=== PATIENT | female | born 1990 | race Caucasian/White ===

== ENCOUNTER 2017-09-24 18:20 | Emergency (ER) | payer MEDICAID ==
[~2017-09-24] VITALS: Ht 160 cm; Wt 136.3 kg
[~2017-09-24 18:20] MED LIST: ACHD5005 PO; AMOX500C2 PO; CEPH-507 PO; CIPR500T78 PO; DCS100C PO; DOCU100C37 PO; FERR-57 PO; FERR-65 PO; HYDR-1231 PO; HYDR-3729 PO; IBP600T1 PO; IBUP-1773 PO; IBUP800T26 PO; METR500T PO; ONDA-42 PO; ONDA-42 SL; ONDA4TAB10 PO; OXYC-12 PO; POLY119P5 PO; PREN1TAB71 PO; PRENATAL VITAMINS; PYRI50TA10 PO; RT-ALBUINH IH; TRM50T PO; UNISOM25 M1 PO
--- OUTSIDE RECORDS SUMMARY | 2017-09-24 20:14 | XMS REPORT | Continuity of Care Document ---
Author Author [facility] Address Unknown Phone Unavailable Allergies Active Description Code Type Severity Reaction Onset Reported/Identified Relationship to Patient Clinical Status Yes codeine [id number] Drug Allergy Mild N/A 08/24/2008 Yes codeine Drug Allergy N/A N/A 07/07/2009 Yes Seroquel Drug Allergy N/A N/A 02/16/2014 Yes quetiapine [id number] Drug Allergy Unknown N/A 07/03/2015 Yes Sulfa (Sulfonamide Antibiotics) [id number] Drug Allergy Unknown N/A 2015 Medications There is no data. Problems Date Dx Coded Attending Type Code Diagnosis Diagnosed By 07/07/2009 NEWTON LÓPEZ APRN 110.5 DERMATOPHYTOSIS, OF THE BODY 07/07/2009 KARINE CALDWELL APRN 110.5 DERMATOPHYTOSIS, OF THE BODY 07/07/2009 ANGELINA HAGAN MD 110.5 DERMATOPHYTOSIS, OF THE BODY 07/07/2009 BRANDEE NICHOLE DO 110.5 DERMATOPHYTOSIS, OF THE BODY 07/07/2009 KARINE CALDWELL APRN A 110.5 DERMATOPHYTOSIS, OF THE BODY 07/07/2009 ROSA LEMUS APRN 110.5 DERMATOPHYTOSIS, OF THE BODY 07/07/2009 JENN ROSARIO MD 110.5 DERMATOPHYTOSIS, OF THE BODY 07/07/2009 JENN ROSARIO MD 110.5 DERMATOPHYTOSIS, OF THE BODY 07/07/2009 JENN ROSARIO MD 110.5 DERMATOPHYTOSIS, OF THE BODY 07/07/2009 JENN ROSARIO MD 110.5 DERMATOPHYTOSIS, OF THE BODY 07/07/2009 JENN ROSARIO MD 110.5 DERMATOPHYTOSIS, OF THE BODY 07/07/2009 JENN ROSARIO MD 110.5 DERMATOPHYTOSIS, OF THE BODY 11/13/2009 NEWTON LÓPEZ APRN R 692.9 CONTACT DERMATITIS AND OTHER ECZEMA, UNSPECIFIED CAUSE 11/13/2009 NEWTON LÓPEZ APRN R 724.5 BACKACHE UNSPECIFIED 11/13/2009 KARINE CALDWELL APRN A 692.9 CONTACT DERMATITIS AND OTHER ECZEMA, UNSPECIFIED CAUSE 11/13/2009 KARINE CALDWELL APRN A 724.5 BACKACHE UNSPECIFIED 11/13/2009 ANGELINA HAGAN MD 692.9 CONTACT DERMATITIS AND OTHER ECZEMA, UNSPECIFIED CAUSE 11/13/2009 ANGELINA HAGAN MD N 724.5 BACKACHE UNSPECIFIED 11/13/2009 NICHOLE DODAYSIA K 692.9 CONTACT DERMATITIS AND OTHER ECZEMA, UNSPECIFIED CAUSE 11/13/2009 NICHOLE DO, BRANDEE K 724.5 BACKACHE UNSPECIFIED 11/13/2009 KARINE CALDWELL APRN A 692.9 CONTACT DERMATITIS AND OTHER ECZEMA, UNSPECIFIED CAUSE 11/13/2009 KARINE CALDWELL APRN A 724.5 BACKACHE UNSPECIFIED 11/13/2009 ALLAN HESTER ROSA R 692.9 CONTACT DERMATITIS AND OTHER ECZEMA, UNSPECIFIED CAUSE 11/13/2009 ALLAN HESTER ROSA R 724.5 BACKACHE UNSPECIFIED 11/13/2009 JENN ROSARIO MD 692.9 CONTACT DERMATITIS AND OTHER ECZEMA, UNSPECIFIED CAUSE 11/13/2009 JENN ROSARIO MD 724.5 BACKACHE UNSPECIFIED 11/13/2009 JENN ROSARIO MD 692.9 CONTACT DERMATITIS AND OTHER ECZEMA, UNSPECIFIED CAUSE 11/13/2009 JENN ROSARIO MD 724.5 BACKACHE UNSPECIFIED 11/13/2009 JENN ROSARIO MD 692.9 CONTACT DERMATITIS AND OTHER ECZEMA, UNSPECIFIED CAUSE 11/13/2009 JENN ROSARIO MD 724.5 BACKACHE UNSPECIFIED 11/13/2009 JENN ROSARIO MD 692.9 CONTACT DERMATITIS AND OTHER ECZEMA, UNSPECIFIED CAUSE 11/13/2009 JENN ROSARIO MD 724.5 BACKACHE UNSPECIFIED 11/13/2009 JENN ROSARIO MD 692.9 CONTACT DERMATITIS AND OTHER ECZEMA, UNSPECIFIED CAUSE 11/13/2009 JENN ROSARIO MD 724.5 BACKACHE UNSPECIFIED 11/13/2009 JENN ROSARIO MD 692.9 CONTACT DERMATITIS AND OTHER ECZEMA, UNSPECIFIED CAUSE 11/13/2009 JENN ROSARIO MD 724.5 BACKACHE UNSPECIFIED 12/07/2009 RENE HESTER, NEWTON R 382.00 ACUTE SUPPURATIVE OTITIS MEDIA WITHOUT SPONTANEOUS RUPTURE OF EAR DRUM 12/07/2009 ALBANIA LÓPEZ APRNRICIA R 465.9 ACUTE UPPER RESPIRATORY INFECTIONS OF UNSPECIFIED SITE 12/07/2009 PAULETTE HESTER, KARINE A 382.00 ACUTE SUPPURATIVE OTITIS MEDIA WITHOUT SPONTANEOUS RUPTURE OF EAR DRUM 12/07/2009 PAULETTE HESTER, KARINE A 465.9 ACUTE UPPER RESPIRATORY INFECTIONS OF UNSPECIFIED SITE 12/07/2009 ANGELINA HAGAN MD 382.00 ACUTE SUPPURATIVE OTITIS MEDIA WITHOUT SPONTANEOUS RUPTURE OF EAR DRUM 12/07/2009 ANGELINA HAGAN MD 465.9 ACUTE UPPER RESPIRATORY INFECTIONS OF UNSPECIFIED SITE 12/07/2009 DIONISIO BEASLEY BRANDEE K 382.00 ACUTE SUPPURATIVE OTITIS MEDIA WITHOUT SPONTANEOUS RUPTURE OF EAR DRUM 12/07/2009 DIONISIO BEASLEY BRANDEE K 465.9 ACUTE UPPER RESPIRATORY INFECTIONS OF UNSPECIFIED SITE 12/07/2009 PAULETTE HESTER, KARINE A 382.00 ACUTE SUPPURATIVE OTITIS MEDIA WITHOUT SPONTANEOUS RUPTURE OF EAR DRUM 12/07/2009 PAULETTE HESTER, KARINE A 465.9 ACUTE UPPER RESPIRATORY INFECTIONS OF UNSPECIFIED SITE 12/07/2009 ALLAN HESTER ROSA R 382.00 ACUTE SUPPURATIVE OTITIS MEDIA WITHOUT SPONTANEOUS RUPTURE OF EAR DRUM 12/07/2009 ALLAN HESTER, ROSA R 465.9 ACUTE UPPER RESPIRATORY INFECTIONS OF UNSPECIFIED SITE 12/07/2009 JENN ROSARIO MD 382.00 ACUTE SUPPURATIVE OTITIS MEDIA WITHOUT SPONTANEOUS RUPTURE OF EAR DRUM 12/07/2009 JENN ROSARIO MD 465.9 ACUTE UPPER RESPIRATORY INFECTIONS OF UNSPECIFIED SITE 12/07/2009 JENN ROSARIO MD 382.00 ACUTE SUPPURATIVE OTITIS MEDIA WITHOUT SPONTANEOUS RUPTURE OF EAR DRUM 12/07/2009 JENN ROSARIO MD 465.9 ACUTE UPPER RESPIRATORY INFECTIONS OF UNSPECIFIED SITE 12/07/2009 JENN ROSARIO MD 382.00 ACUTE SUPPURATIVE OTITIS MEDIA WITHOUT SPONTANEOUS RUPTURE OF EAR DRUM 12/07/2009 JENN ROSARIO MD 465.9 ACUTE UPPER RESPIRATORY INFECTIONS OF UNSPECIFIED SITE 12/07/2009 JENN ROSARIO MD 382.00 ACUTE SUPPURATIVE OTITIS MEDIA WITHOUT SPONTANEOUS RUPTURE OF EAR DRUM 12/07/2009 JENN ROSARIO MD 465.9 ACUTE UPPER RESPIRATORY INFECTIONS OF UNSPECIFIED SITE 12/07/2009 JENN ROSARIO MD 382.00 ACUTE SUPPURATIVE OTITIS MEDIA WITHOUT SPONTANEOUS RUPTURE OF EAR DRUM 12/07/2009 JENN ROSARIO MD 465.9 ACUTE UPPER RESPIRATORY INFECTIONS OF UNSPECIFIED SITE 12/07/2009 JENN ROSARIO MD 382.00 ACUTE SUPPURATIVE OTITIS MEDIA WITHOUT SPONTANEOUS RUPTURE OF EAR DRUM 12/07/2009 JENN ROSARIO MD 465.9 ACUTE UPPER RESPIRATORY INFECTIONS OF UNSPECIFIED SITE 03/19/2010 NEWTON LÓPEZ APRN 133.0 SCABIES 03/19/2010 KARINE CALDWELL APRN A 133.0 SCABIES 03/19/2010 ANGELINA HAGAN MD 133.0 SCABIES 03/19/2010 BRANDEE NICHOLE DO 133.0 SCABIES 03/19/2010 KARINE CALDWELL APRN A 133.0 SCABIES 03/19/2010 ROSA LEMUS APRN 133.0 SCABIES 03/19/2010 JENN ROSARIO MD 133.0 SCABIES 03/19/2010 JENN ROSARIO MD 133.0 SCABIES 03/19/2010 JENN ROSARIO MD 133.0 SCABIES 03/19/2010 JENN ROSARIO MD 133.0 SCABIES 03/19/2010 JENN ROSARIO MD 133.0 SCABIES 03/19/2010 JENN ROSARIO MD 133.0 SCABIES 09/11/2010 NEWTON LÓPEZ APRN 305.1 NONDEPENDENT TOBACCO USE DISORDER 09/11/2010 NEWTON LÓPEZ APRN 786.07 WHEEZING 09/11/2010 KARINE CALDWELL APRN 305.1 NONDEPENDENT TOBACCO USE DISORDER 09/11/2010 PAULETTE HESTER KARINE A 786.07 WHEEZING 09/11/2010 ANGELINA HAGAN MD 305.1 NONDEPENDENT TOBACCO USE DISORDER 09/11/2010 ANGELINA HAGAN MD 786.07 WHEEZING 09/11/2010 BRANDEE NICOHLE DO K 305.1 NONDEPENDENT TOBACCO USE DISORDER 09/11/2010 DIONISIO BEASLEY BRANDEE K 786.07 WHEEZING 09/11/2010 PAULETTEKARINE Smith APRN A 305.1 NONDEPENDENT TOBACCO USE DISORDER 09/11/2010 JOSE CALDWELL APRNIDI A 786.07 WHEEZING 09/11/2010 ALLAN HESTER ROSA R 305.1 NONDEPENDENT TOBACCO USE DISORDER 09/11/2010 ALLAN HESTER ROSA R 786.07 WHEEZING 09/11/2010 JENN ROSARIO MD 305.1 NONDEPENDENT TOBACCO USE DISORDER 09/11/2010 JENN ROSARIO MD 786.07 WHEEZING 09/11/2010 JENN ROSARIO MD 305.1 NONDEPENDENT TOBACCO USE DISORDER 09/11/2010 JENN ROSARIO MD 786.07 WHEEZING 09/11/2010 JENN ROSARIO MD 305.1 NONDEPENDENT TOBACCO USE DISORDER 09/11/2010 JENN ROSARIO MD 786.07 WHEEZING 09/11/2010 JENN ROSARIO MD 305.1 NONDEPENDENT TOBACCO USE DISORDER 09/11/2010 JENN ROSARIO MD 786.07 WHEEZING 09/11/2010 JENN ROSARIO MD 305.1 NONDEPENDENT TOBACCO USE DISORDER 09/11/2010 JENN ROSARIO MD 786.07 WHEEZING 09/11/2010 JENN ROSARIO MD 305.1 NONDEPENDENT TOBACCO USE DISORDER 09/11/2010 JENN ROSARIO MD 786.07 WHEEZING 07/03/2013 CASS CALI MD Ot 382.9 OTITIS MEDIA NOS 07/03/2013 CASS CALI MD Ot 388.70 OTALGIA NOS 09/13/2013 NEWTON LÓPEZ APRN R 788.1 DYSURIA 09/13/2013 NEWTON LÓPEZ APRN R 911.4 INSECT BITE NONVENOMOUS OF TRUNK WITHOUT INFECTION 09/13/2013 NEWTON LÓPEZ APRN R V22.2 STATE INCIDENTAL 09/13/2013 PAULETTE DOBSONJOSE SmithIDI A 788.1 DYSURIA 09/13/2013 PAULETTE BEATING MACHINE OPERATORJOSE SmithIDI A 911.4 INSECT BITE NONVENOMOUS OF TRUNK WITHOUT INFECTION 09/13/2013 PAULETTE DOBSONN, KARINE A V22.2 STATE INCIDENTAL 09/13/2013 ANGELINA HAGAN MD 788.1 DYSURIA 09/13/2013 ANGELINA HAGAN MD 911.4 INSECT BITE NONVENOMOUS OF TRUNK WITHOUT INFECTION 09/13/2013 ANGELINA HAGAN MD V22.2 STATE INCIDENTAL 09/13/2013 NICHOLE DO, BRANDEE K 788.1 DYSURIA 09/13/2013 NICHOLE DO, BRANDEE K 911.4 INSECT BITE NONVENOMOUS OF TRUNK WITHOUT INFECTION 09/13/2013 NICHOLE DO, BRANDEE K V22.2 STATE INCIDENTAL 09/13/2013 PAULETTEJOSE CASTRO APRNIDI A 788.1 DYSURIA 09/13/2013 KARINE CALDWELL APRN A 911.4 INSECT BITE NONVENOMOUS OF TRUNK WITHOUT INFECTION 09/13/2013 PAULETTE BEATING MACHINE OPERATORJOSE SmithIDI A V22.2 STATE INCIDENTAL 09/13/2013 ALLAN HESTER ROSA R 788.1 DYSURIA 09/13/2013 INO LEMUS APRNINA R 911.4 INSECT BITE NONVENOMOUS OF TRUNK WITHOUT INFECTION 09/13/2013 ALLAN HESTER ROSA R V22.2 STATE INCIDENTAL 09/13/2013 JENN ROSARIO MD 788.1 DYSURIA 09/13/2013 JENN ROSARIO MD 911.4 INSECT BITE NONVENOMOUS OF TRUNK WITHOUT INFECTION 09/13/2013 JENN ROSARIO MD V22.2 STATE INCIDENTAL 09/13/2013 JENN ROSARIO MD 788.1 DYSURIA 09/13/2013 JENN ROSARIO MD 911.4 INSECT BITE NONVENOMOUS OF TRUNK WITHOUT INFECTION 09/13/2013 JENN ROSARIO MD V22.2 STATE INCIDENTAL 09/13/2013 JENN ROSARIO MD 788.1 DYSURIA 09/13/2013 JENN ROSARIO MD 911.4 INSECT BITE NONVENOMOUS OF TRUNK WITHOUT INFECTION 09/13/2013 JENN ROSARIO MD V22.2 STATE INCIDENTAL 09/13/2013 JENN ROSARIO MD 788.1 DYSURIA 09/13/2013 JENN ROSARIO MD 911.4 INSECT BITE NONVENOMOUS OF TRUNK WITHOUT INFECTION 09/13/2013 JENN ROSARIO MD V22.2 STATE INCIDENTAL 09/13/2013 JENN ROSARIO MD 788.1 DYSURIA 09/13/2013 JENN ROSARIO MD 911.4 INSECT BITE NONVENOMOUS OF TRUNK WITHOUT INFECTION 09/13/2013 JENN ROSARIO MD V22.2 STATE INCIDENTAL 09/13/2013 JENN ROSARIO MD 788.1 DYSURIA 09/13/2013 JENN ROSARIO MD 911.4 INSECT BITE NONVENOMOUS OF TRUNK WITHOUT INFECTION 09/13/2013 JENN ROSARIO MD V22.2 STATE INCIDENTAL 09/23/2013 MANINDER MOONEY, RADHA Betancourt Ot 640.03 THREATEN ABORT-ANTEPART 09/28/2013 MANINDER MOONEY, RADHA Betancourt Ot 634.90 SPON ABORT UNCOMPL-UNSP 09/30/2013 ANALIA MOONEY, ANISA Dominguez Ot 632 MISSED 10/23/2013 JAMI CASTRO MD Ot 789.09 10/24/2013 JAMI CASTRO MD Ot 789.09 ABDOMINAL PAIN, OTHER SPECIFIED SITE 01/04/2014 KARINE CALDWELL APRN 625.8 OTHER SPECIFIED SYMPTOMS ASSOCIATED WITH FEMALE GENITAL ORGANS 01/04/2014 KARINE CALDWELL APRN V23.2 , HIGH RISK W/ HX OF 01/04/2014 KARINE CALDWELL APRN V74.5 STD SCREEN 01/04/2014 ANGELINA HAGAN MD 625.8 OTHER SPECIFIED SYMPTOMS ASSOCIATED WITH FEMALE GENITAL ORGANS 01/04/2014 ANGELINA HAGAN MD V23.2 , HIGH RISK W/ HX OF 01/04/2014 ANGELINA HAGAN MD V74.5 STD SCREEN 01/04/2014 BRANDEE NICHOLE DO 625.8 OTHER SPECIFIED SYMPTOMS ASSOCIATED WITH FEMALE GENITAL ORGANS 01/04/2014 DIONISIO BEASLEY BRANDEE Reyes V23.2 , HIGH RISK W/ HX OF 01/04/2014 BRANDEE NICHOLE DO Reyes V74.5 STD SCREEN 01/04/2014 PAULETTE APRN, KARINE A 625.8 OTHER SPECIFIED SYMPTOMS ASSOCIATED WITH FEMALE GENITAL ORGANS 01/04/2014 PAULETTE BEATING MACHINE OPERATOR, KARINE A V23.2 , HIGH RISK W/ HX OF 01/04/2014 PAULETTE BEATING MACHINE OPERATOR, KARINE A V74.5 STD SCREEN 01/04/2014 INO LEMUS APRNINA R 625.8 OTHER SPECIFIED SYMPTOMS ASSOCIATED WITH FEMALE GENITAL ORGANS 01/04/2014 ALLAN HESTER, ROSA R V23.2 , HIGH RISK W/ HX OF 01/04/2014 INO LEMUS APRNINA R V74.5 STD SCREEN 01/04/2014 JENN ROSARIO MD 625.8 OTHER SPECIFIED SYMPTOMS ASSOCIATED WITH FEMALE GENITAL ORGANS 01/04/2014 JENN ROSARIO MD V23.2 , HIGH RISK W/ HX OF 01/04/2014 JENN ROSARIO MD V74.5 STD SCREEN 01/04/2014 JENN ROSARIO MD 625.8 OTHER SPECIFIED SYMPTOMS ASSOCIATED WITH FEMALE GENITAL ORGANS 01/04/2014 JENN ROSARIO MD V23.2 , HIGH RISK W/ HX OF 01/04/2014 JENN ROSARIO MD V74.5 STD SCREEN 01/04/2014 JENN ROSARIO MD 625.8 OTHER SPECIFIED SYMPTOMS ASSOCIATED WITH FEMALE GENITAL ORGANS 01/04/2014 JENN ROSARIO MD V23.2 , HIGH RISK W/ HX OF 01/04/2014 JENN ROSARIO MD V74.5 STD SCREEN 01/04/2014 JENN ROSARIO MD 625.8 OTHER SPECIFIED SYMPTOMS ASSOCIATED WITH FEMALE GENITAL ORGANS 01/04/2014 JENN ROSARIO MD V23.2 , HIGH RISK W/ HX OF 01/04/2014 JENN ROSARIO MD V74.5 STD SCREEN 01/04/2014 JENN ROSARIO MD 625.8 OTHER SPECIFIED SYMPTOMS ASSOCIATED WITH FEMALE GENITAL ORGANS 01/04/2014 JENN ROSARIO MD V23.2 , HIGH RISK W/ HX OF 01/04/2014 JENN ROSARIO MD V74.5 STD SCREEN 01/04/2014 JENN ROSARIO MD 625.8 OTHER SPECIFIED SYMPTOMS ASSOCIATED WITH FEMALE GENITAL ORGANS 01/04/2014 JENN ROSARIO MD V23.2 , HIGH RISK W/ HX OF 01/04/2014 JENN ROSARIO MD V74.5 STD SCREEN 01/07/2014 DANYA MOONEY, ANGELINA Smith 787.01 NAUSEA WITH VOMITING 01/07/2014 DAYSI NICHOLE DOA K 787.01 NAUSEA WITH VOMITING 01/07/2014 PAULETTE HESTER, KARINE A 787.01 NAUSEA WITH VOMITING 01/07/2014 ALLAN HESTER, ROSA R 787.01 NAUSEA WITH VOMITING 01/07/2014 JENN ROSARIO MD 787.01 NAUSEA WITH VOMITING 01/07/2014 JENN ROSARIO MD 787.01 NAUSEA WITH VOMITING 01/07/2014 JENN ROSARIO MD 787.01 NAUSEA WITH VOMITING 01/07/2014 JENN ROSARIO MD 787.01 NAUSEA WITH VOMITING 01/07/2014 JENN ROSARIO MD 787.01 NAUSEA WITH VOMITING 01/07/2014 JENN ROSARIO MD 787.01 NAUSEA WITH VOMITING 01/19/2014 DAYSI NICHOLE DOA K V04.81 FLU SHOT 01/19/2014 DIONISIO BEASLEY BRANDEE K V22.0 , NORMAL FIRST 01/19/2014 PAULETTEGLORIA HESTER, KARINE A V04.81 FLU SHOT 01/19/2014 PAULETTE HESTER, KARINE A V22.0 , NORMAL FIRST 01/19/2014 ALLAN HESTER ROSA R V04.81 FLU SHOT 01/19/2014 ALLAN HESTER ROSA R V22.0 , NORMAL FIRST 01/19/2014 JENN ROSARIO MD V04.81 FLU SHOT 01/19/2014 JENN ROSARIO MD V22.0 , NORMAL FIRST 01/19/2014 JENN ROSARIO MD V04.81 FLU SHOT 01/19/2014 JENN ROSARIO MD V22.0 , NORMAL FIRST 01/19/2014 JENN ROSARIO MD V04.81 FLU SHOT 01/19/2014 JENN ROSARIO MD V22.0 , NORMAL FIRST 01/19/2014 JENN ROSARIO MD V04.81 FLU SHOT 01/19/2014 JENN ROSARIO MD V22.0 , NORMAL FIRST 01/19/2014 JENN ROSARIO MD V04.81 FLU SHOT 01/19/2014 JENN ROSARIO MD V22.0 , NORMAL FIRST 01/19/2014 JENN ROSARIO MD V04.81 FLU SHOT 01/19/2014 JENN ROSARIO MD V22.0 , NORMAL FIRST 02/16/2014 KARINE CALDWELL APRN 564.00 UNSPECIFIED CONSTIPATION 02/16/2014 KARINE CALDWELL APRN V76.2 CERVICAL CANCER SCREENING (PAP SMEAR) 02/16/2014 ROSA LEMUS APRN R 564.00 UNSPECIFIED CONSTIPATION 02/16/2014 ROSA LEMUS APRN V76.2 CERVICAL CANCER SCREENING (PAP SMEAR) 02/16/2014 JENN ROSARIO MD 564.00 UNSPECIFIED CONSTIPATION 02/16/2014 JENN ROSARIO MD V76.2 CERVICAL CANCER SCREENING (PAP SMEAR) 02/16/2014 JENN ROSARIO MD 564.00 UNSPECIFIED CONSTIPATION 02/16/2014 JENN ROSARIO MD V76.2 CERVICAL CANCER SCREENING (PAP SMEAR) 02/16/2014 JENN ROSARIO MD 564.00 UNSPECIFIED CONSTIPATION 02/16/2014 JENN ROSARIO MD V76.2 CERVICAL CANCER SCREENING (PAP SMEAR) 02/16/2014 JENN ROSARIO MD 564.00 UNSPECIFIED CONSTIPATION 02/16/2014 JENN ROSAIRO MD V76.2 CERVICAL CANCER SCREENING (PAP SMEAR) 02/16/2014 JENN ROSARIO MD 564.00 UNSPECIFIED CONSTIPATION 02/16/2014 JENN ROSARIO MD V76.2 CERVICAL CANCER SCREENING (PAP SMEAR) 02/16/2014 JENN ROSARIO MD 564.00 UNSPECIFIED CONSTIPATION 02/16/2014 JENN ROSARIO MD V76.2 CERVICAL CANCER SCREENING (PAP SMEAR) 03/17/2014 ANALIA MOONEY, ANISA Dominguez Ot 632 03/17/2014 ANALIA MOONEY, ANISA Dominguez Ot V72.84 03/17/2014 KARINE CALDWELL BEATING MACHINE OPERATOR Ot V23.2 03/17/2014 PAULETTEKARINE BEATING MACHINE OPERATOR Ot V28.89 03/18/2014 ROSA LEMUS APRN 788.41 URINARY FREQUENCY 03/18/2014 JENN ROSARIO MD 788.41 URINARY FREQUENCY 03/18/2014 JENN ROSARIO MD 788.41 URINARY FREQUENCY 03/18/2014 JENN ROSARIO MD 788.41 URINARY FREQUENCY 03/18/2014 JENN ROSARIO MD 788.41 URINARY FREQUENCY 03/18/2014 JENN ROSARIO MD 788.41 URINARY FREQUENCY 03/18/2014 JENN ROSARIO MD 788.41 URINARY FREQUENCY 04/14/2014 JENN ROSARIO MD, Ot V22.0 04/19/2014 ANALIA MOONEY, ANISA Dominguez Ot 632 04/19/2014 ANISA HELMS MD Ot V72.84 04/19/2014 PAULETTE, KARINE Krystin BEATING MACHINE OPERATOR Ot V23.2 04/19/2014 PAULETTE KARINE Krystin BEATING MACHINE OPERATOR Ot V28.89 04/19/2014 JENN ROSARIO MD, Ot V22.0 05/06/2014 JENN ROSARIO MD Ot 652.23 06/01/2014 JENN ROSARIO MD V06.1 TDAP DX 06/01/2014 JENN ROSARIO MD V06.1 TDAP DX 06/01/2014 JENN ROSARIO MD V06.1 TDAP DX 06/01/2014 JENN ROSARIO MD V06.1 TDAP DX 06/08/2014 Ot 644.03 THRT LISET LABOR-ANTEPART 07/03/2014 JENN ROSARIO MD Ot V22.0 07/03/2014 JENN ROSARIO MD Ot 652.23 07/03/2014 DANYA MOONEY, ANGELINA Smith Ot 655.73 DECR MOVEMNT ANTEPARTUM CONDITION 07/25/2014 JENN ROSARIO MD Ot 558.9 NONINF GASTROENTERIT NEC 07/25/2014 JENN ROSARIO MD Ot 625.8 FEM GENITAL SYMPTOMS NEC 07/25/2014 JENN ROSARIO MD, Ot 648.93 OTH CURR COND-ANTEPARTUM 08/18/2014 JENN ROSARIO MD Ot 278.01 MORBID OBESITY 08/18/2014 JENN ROSARIO MD Ot 285.1 AC POSTHEMORRHAG ANEMIA 08/18/2014 JENN ROSARIO MD, Ot 645.11 POST TERM PREG, DELIV W/WO MENTION OF AN 08/18/2014 JENN ROSARIO MD Ot 648.22 ANEMIA-DELIVERED W P/P 08/18/2014 JENN ROSARIO MD, Ot 649.11 OBESITY COMP PREG/CHILDBIRTH/PUERPERIUM, 08/18/2014 JENN ROSARIO MD Ot 653.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 DISPROPOR-DELIV 08/18/2014 JENN ROSARIO MD Ot 660.11 BONY PELV OBSTRUCT-DELIV 08/18/2014 JENN ROSARIO MD, Ot V06.4 [id number] 08/18/2014 JENN ROSARIO MD, Ot V27.0 DELIVER-SINGLE LIVEBORN 08/18/2014 JENN ROSARIO MD, Ot V85.43 BODY MASS INDEX 50.0-59.9, ADULT 06/23/2015 JENN ROSARIO MD, Ot V22.0 06/23/2015 JENN ROSARIO MD, Ot 652.23 06/23/2015 JULIA SHAH DOA K Ot R10.84 06/23/2015 ANABELA SHAH DO K Ot Z53.21 06/26/2015 MARIBEL CHRIS APRN Ot Z34.81 06/29/2015 MARIBEL CHRIS APRN Ot Z34.81 07/04/2015 MANINDER MOONEY, RADHA Betancourt Ot K59.00 CONSTIPATION, UNSPECIFIED 07/04/2015 RADHA DICKENS MD Ot O23.41 UNSP INFCT OF URINARY TRACT IN 07/04/2015 MANINDER MOONEY, RADHA Betancourt Ot O99.611 DISEASES OF THE DGSTV SYS COMP 07/04/2015 MANINDER MOONEY, RADHA Betancourt Ot R10.84 GENERALIZED ABDOMINAL PAIN 07/04/2015 MANINDER MOONEY, RADHA Betancourt Ot Z3A.10 10 WEEKS GESTATION OF 07/04/2015 JENN ROSARIO MD Ot V22.0 07/04/2015 JENN ROSARIO MD, Ot 652.23 07/04/2015 ANABELA SHAH DO Ot R10.84 07/04/2015 ANABELA SHAH DO Ot Z53.21 07/04/2015 MARIBEL CHRIS APRN Ot Z34.81 07/05/2015 MANINDER MOONEY, RADHA Betancourt Ot K59.00 07/05/2015 MANINDER MOONEY, RADHA Betancourt Ot O23.41 07/05/2015 MANINDER MOONEY, RADHA Betancourt Ot O99.611 07/05/2015 MANINDER MOONEY, RADHA Betancourt Ot R10.84 07/05/2015 MANINDER MOONEY, RADHA Betancourt Ot Z3A.10 08/24/2015 JENN ROSARIO MD Ot V22.0 SUPERVIS NORMAL 1ST PREG 08/24/2015 JENN ROSARIO MD Ot 652.23 BREECH PRESENT-ANTEPART 08/24/2015 ANABELA SHAH DO Ot R10.84 GENERALIZED ABDOMINAL PAIN 08/24/2015 ANABELA SHAH DO Ot Z53.21 PROC/TRTMT NOT CRD OUT D/T PT LV BEF SEE 08/24/2015 MARIBEL CHRIS APRN Ot Z34.81 ENCOUNTER FOR SUPRVSN OF NORMAL PREGNANC 08/24/2015 MARIBEL CHRIS APRN Ot Z34.81 ENCOUNTER FOR SUPRVSN OF NORMAL PREGNANC 09/26/2015 JENN ROSARIO MD Ot V22.0 SUPERVIS NORMAL 1ST PREG 09/26/2015 JENN ROSARIO MD Ot 652.23 BREECH PRESENT-ANTEPART 09/26/2015 ANABELA SHAH DO Ot R10.84 GENERALIZED ABDOMINAL PAIN 09/26/2015 PABLO DO, ANABELA K Ot Z53.21 PROC/TRTMT NOT CRD OUT D/T PT LV BEF SEE 09/26/2015 MARIBEL CHRIS APRN Ot Z34.81 ENCOUNTER FOR SUPRVSN OF NORMAL PREGNANC 09/27/2015 JENN ROSARIO MD, Ot Z36 ENCOUNTER FOR SCREENING OF MOT 09/27/2015 JENN ROSARIO MD, Ot Z3A.22 22 WEEKS GESTATION OF 09/28/2015 JENN ROSARIO MD, Ot Z36 ENCOUNTER FOR SCREENING OF MOT 09/28/2015 JENN ROSARIO MD, Ot Z3A.22 22 WEEKS GESTATION OF 11/07/2015 JENN ROSARIO MD Ot V22.0 SUPERVIS NORMAL 1ST PREG 11/07/2015 JENN ROSARIO MD Ot 652.23 BREECH PRESENT-ANTEPART 11/07/2015 ANABELA SHAH DO Ot R10.84 GENERALIZED ABDOMINAL PAIN 11/07/2015 ANABELA SHAH DO Ot Z53.21 PROC/TRTMT NOT CRD OUT D/T PT LV BEF SEE 11/07/2015 MARIBEL CHRIS APRN Ot Z34.81 ENCOUNTER FOR SUPRVSN OF NORMAL PREGNANC 11/07/2015 JENN ROSARIO MD Ot Z36 ENCOUNTER FOR SCREENING OF MOT 11/07/2015 JENN ROSARIO MD, Ot Z3A.22 22 WEEKS GESTATION OF 11/15/2015 JENN ROSARIO MD Ot V22.0 SUPERVIS NORMAL 1ST PREG 11/15/2015 JENN ROSARIO MD Ot 652.23 BREECH PRESENT-ANTEPART 11/15/2015 ANABELA SHAH DO Ot R10.84 GENERALIZED ABDOMINAL PAIN 11/15/2015 JULIA SHAH DOA Reyes Ot Z53.21 PROC/TRTMT NOT CRD OUT D/T PT LV BEF SEE 11/15/2015 MARIBEL CHRIS APRN Ot Z34.81 ENCOUNTER FOR SUPRVSN OF NORMAL PREGNANC 11/15/2015 JENN ROSARIO MD Ot Z36 ENCOUNTER FOR SCREENING OF MOT 11/15/2015 JENN ROSARIO MD, Ot Z3A.22 22 WEEKS GESTATION OF 11/16/2015 JENN ROSARIO MD Ot Z34.83 ENCOUNTER FOR SUPRVSN OF NORMAL PREGNANC 11/17/2015 JENN ROSARIO MD, Ot Z34.83 ENCOUNTER FOR SUPRVSN OF NORMAL PREGNANC 11/17/2015 JENN ROSARIO MD, Ot Z36 ENCOUNTER FOR SCREENING OF MOT 11/17/2015 JENN ROSARIO MD, Ot Z3A.22 22 WEEKS GESTATION OF 12/01/2015 JENN ROSARIO MD, Ot Z34.83 ENCOUNTER FOR SUPRVSN OF NORMAL PREGNANC 01/17/2016 JENN ROSARIO MD Ot V22.0 SUPERVIS NORMAL 1ST PREG 01/17/2016 JENN ROSARIO MD Ot 652.23 BREECH PRESENT-ANTEPART 01/17/2016 ANABELA SHAH DO Ot R10.84 GENERALIZED ABDOMINAL PAIN 01/17/2016 ANABELA SHAH DO Ot Z53.21 PROC/TRTMT NOT CRD OUT D/T PT LV BEF SEE 01/17/2016 MARIBEL CHRIS APRN Ot Z34.81 ENCOUNTER FOR SUPRVSN OF NORMAL PREGNANC 01/17/2016 JENN ROSARIO MD, Ot Z36 ENCOUNTER FOR SCREENING OF MOT 01/17/2016 JENN ROSARIO MD, Ot Z3A.22 22 WEEKS GESTATION OF 01/17/2016 JENN ROSARIO MD, Ot Z34.83 ENCOUNTER FOR SUPRVSN OF NORMAL PREGNANC 01/17/2016 SYLVESTER SINGLETARY DO Ot O34.211 MATERN CARE FOR LOW TRANSVERSE SCAR FROM 01/17/2016 SYLVESTER SINGLETARY DO Ot Z01.818 ENCOUNTER FOR OTHER PREPROCEDURAL EXAMIN 01/17/2016 SYLVESTER SINGLETARY DO Ot Z11.2 ENCOUNTER FOR SCREENING FOR OTHER BACTER 01/19/2016 SYLVESTER SINGLETARY DO Ot O34.211 MATERN CARE FOR LOW TRANSVERSE SCAR FROM 01/19/2016 SYLVESTER SINGLETARY DO Ot Z01.818 ENCOUNTER FOR OTHER PREPROCEDURAL EXAMIN 01/19/2016 SYLVESTER SINGLETARY DO, Ot Z11.2 ENCOUNTER FOR SCREENING FOR OTHER BACTER 01/24/2016 SYLVESTER SINGLETARY DO Ot D64.9 ANEMIA, UNSPECIFIED 01/24/2016 SYLVESTER SINGLETARY DO Ot E66.01 MORBID (SEVERE) OBESITY DUE TO EXCESS CA 01/24/2016 SYLVESTER SINGLETARY DO Ot O34.211 MATERN CARE FOR LOW TRANSVERSE SCAR FROM 01/24/2016 SYLVESTER SINGLETARY DO Ot O99.013 ANEMIA COMPLICATING , THIRD TRI 01/24/2016 SYLVESTER SINGLETARY DO Ot O99.213 OBESITY COMPLICATING , THIRD TR 01/24/2016 SYLVESTER SINGLETARY DO Ot Z23 ENCOUNTER FOR IMMUNIZATION 01/24/2016 SYLVESTER SINGLETARY DO Ot Z37.0 SINGLE LIVE 01/24/2016 SYLVESTER SINGLETARY DO Ot Z3A.39 39 WEEKS GESTATION OF 01/24/2016 SYLVESTER SINGLETARY DO Ot Z68.43 BODY MASS INDEX (BMI) 50-59.9 , ADULT 02/05/2016 JAMI CASTRO MD Ot E66.01 MORBID (SEVERE) OBESITY DUE TO EXCESS CA 02/05/2016 JAMI CASTRO MD Ot G89.18 OTHER ACUTE POSTPROCEDURAL PAIN 02/05/2016 JAMI CASTRO MD Ot N93.9 ABNORMAL UTERINE AND VAGINAL BLEEDING, U 02/05/2016 JAMI CASTRO MD, Ot Z87.891 PERSONAL HISTORY OF NICOTINE DEPENDENCE 02/05/2016 JENN ROSARIO MD Ot V22.0 SUPERVIS NORMAL 1ST PREG 02/05/2016 JENN ROSARIO MD Ot 652.23 BREECH PRESENT-ANTEPART 02/05/2016 PABLO BEASLEY ANAEBLA K Ot R10.84 GENERALIZED ABDOMINAL PAIN 02/05/2016 PABLO BEASLEY ANABELA Reyes Ot Z53.21 PROC/TRTMT NOT CRD OUT D/T PT LV BEF SEE 02/05/2016 MARIBEL CHRIS APRN Ot Z34.81 ENCOUNTER FOR SUPRVSN OF NORMAL PREGNANC 02/05/2016 JENN ROSARIO MD Ot Z36 ENCOUNTER FOR SCREENING OF MOT 02/05/2016 JENN ROSARIO MD, Ot Z3A.22 22 WEEKS GESTATION OF 02/05/2016 JENN ROSARIO MD, Ot Z34.83 ENCOUNTER FOR SUPRVSN OF NORMAL PREGNANC 02/06/2016 JENN ROSARIO MD Ot V22.0 SUPERVIS NORMAL 1ST PREG 02/06/2016 JENN ROSARIO MD Ot 652.23 BREECH PRESENT-ANTEPART 02/06/2016 ANABELA SHAH DO Ot R10.84 GENERALIZED ABDOMINAL PAIN 02/06/2016 ANABELA SHAH DO Ot Z53.21 PROC/TRTMT NOT CRD OUT D/T PT LV BEF SEE 02/06/2016 MARIBEL CHRIS APRN Ot Z34.81 ENCOUNTER FOR SUPRVSN OF NORMAL PREGNANC 02/06/2016 JENN ROSARIO MD Ot Z36 ENCOUNTER FOR SCREENING OF MOT 02/06/2016 JENN ROSARIO MD Ot Z3A.22 22 WEEKS GESTATION OF 02/06/2016 JENN ROSARIO MD Ot Z34.83 ENCOUNTER FOR SUPRVSN OF NORMAL PREGNANC 02/06/2016 MARIBEL CHRIS APRN Ot Z34.81 ENCOUNTER FOR SUPRVSN OF NORMAL PREGNANC 02/06/2016 JAMI CASTRO MD Ot E66.01 MORBID (SEVERE) OBESITY DUE TO EXCESS CA 02/06/2016 JAMI CASTRO MD Ot G89.18 OTHER ACUTE POSTPROCEDURAL PAIN 02/06/2016 JAMI CASTRO MD Ot N93.9 ABNORMAL UTERINE AND VAGINAL BLEEDING, U 02/06/2016 JAMI CASTRO MD Ot Z87.891 PERSONAL HISTORY OF NICOTINE DEPENDENCE 02/11/2016 JAMI CASTRO MD Ot E66.01 MORBID (SEVERE) OBESITY DUE TO EXCESS CA 02/11/2016 JAMI CASTRO MD Ot G89.18 OTHER ACUTE POSTPROCEDURAL PAIN 02/11/2016 JAMI CASTRO MD Ot N93.9 ABNORMAL UTERINE AND VAGINAL BLEEDING, U 02/11/2016 JAMI CASTRO MD Ot Z87.891 PERSONAL HISTORY OF NICOTINE DEPENDENCE 03/05/2016 JENN ROSARIO MD Ot V22.0 SUPERVIS NORMAL 1ST PREG 03/05/2016 JENN ROSARIO MD Ot 652.23 BREECH PRESENT-ANTEPART 03/05/2016 PABLODion BEASLEY ANABELA Chambers Ot R10.84 GENERALIZED ABDOMINAL PAIN 03/05/2016 PABLO BEASLEY ANABELA Chambers Ot Z53.21 PROC/TRTMT NOT CRD OUT D/T PT LV BEF SEE 03/05/2016 MARIBEL CHRIS APRN Ot Z34.81 ENCOUNTER FOR SUPRVSN OF NORMAL PREGNANC 03/05/2016 JENN ROSARIO MD Ot Z36 ENCOUNTER FOR SCREENING OF MOT 03/05/2016 JENN ROSARIO MD Ot Z3A.22 22 WEEKS GESTATION OF 03/05/2016 JENN ROSARIO MD Ot Z34.83 ENCOUNTER FOR SUPRVSN OF NORMAL PREGNANC 03/05/2016 MARIBEL CHRIS APRN Ot Z34.81 ENCOUNTER FOR SUPRVSN OF NORMAL PREGNANC Procedures Code [place] [address] UA W/ CULTURE IF INDICATED 09/13/2013 01072 US OB - EARLY <14 WEEKS 01/04/2014 70586 CULTURE UROGENITAL 01/04/2014 13498 GC/CHLAM PROBE ([facility]) 01/04/2014 16967 TEST, URINE (IN- HOUSE) 01/04/2014 89887 UA W/ CULTURE IF INDICATED 01/04/2014 66138 TRICHOMONAS (IN-HOUSE) 01/04/2014 00946 UA LONG DIP 01/07/2014 44889 UA OB DIP 01/19/2014 20637 ROUTINE VENIPUNCTURE 01/19/2014 69184 CBC 01/19/2014 4026243 CANCELLED TEST 01/19/2014 9802552 ANTIBODY SCREEN (RESULT ONLY) 01/20/2014 28927 BLOOD TYPE/Rh FACTOR 01/20/2014 77523 CULTURE URINE 01/20/2014 04268 SYPHILLIS-[facility] 01/24/2014 81911 HIV ([facility]) 01/24/2014 98392 ANTIBODY SCREEN (order) 01/24/2014 24489 ROUTINE VENIPUNCTURE 02/16/2014 93377 TRICHOMONAS (IN-HOUSE) 02/16/2014 66115 UA OB DIP 02/16/2014 98962 TSH 02/17/2014 28597 RUBELLA ANTIBODY, IGG 02/18/2014 52724 CULTURE UROGENITAL 02/20/2014 63529 HEP B SURFACE ANTIGEN ([facility] ) 02/21/2014 92589 GC/CHLAM PROBE ([facility]) 02/21/2014 62170 PAP SMEAR 02/21/2014 Q0091 PAP SMEAR OBTAIN SMEAR 02/21/2014 96928 UA OB DIP 03/16/2014 91336 US OB - COMPLETE >14 WEEKS 03/18/2014 75442 UA W/ CULTURE IF INDICATED 03/18/2014 70493 UA OB DIP 04/13/2014 50150 US OB - FOLLOW UP 04/19/2014 67161 UA OB DIP 05/11/2014 80817 UA OB DIP 06/29/2014 43299 UA OB DIP 07/13/2014 52533 CULTURE GROUP B STREP VAG 07/15/2014 73771 UA OB DIP 07/20/2014 96.49 OTHER INSTILLATION 08/14/2014 74.1 LOW CERVICAL 08/15/2014 99.77 APPL/ADMIN OF AN ADHESION BARRIER SUBSTA 08/15/2014 [id number] EXTRACTION OF POC, LOW CERVICAL, OPEN AP 01/22/2016 [id number] INTRODUCE OF ADHESION BARRIER INTO FEM R 01/22/2016 Results Test Result Range Strep Gp B Culture - 01/03/16 15:08 Strep Gp B Culture Negative Negative Methicillin resistant Staphylococcus aureus (MRSA) screening culture - 14:05 Methicillin resistant Staphylococcus aureus (MRSA) screening culture NEG NRG Complete blood count (CBC) with automated white blood cell (WBC) differential - 01/22/16 06:30 Blood leukocytes automated count (number/volume) 14.9 10*3/uL 4.3-11.0 Blood erythrocytes automated count (number/volume) 3.97 10*6/uL 4.35-5.85 Venous blood hemoglobin measurement (mass/volume) 10.5 g/dL 11.5-16.0 Blood hematocrit (volume fraction) 32 % 35-52 Automated erythrocyte mean corpuscular volume 82 [foz_us] 80-99 Automated erythrocyte mean corpuscular hemoglobin (mass per erythrocyte) 26 pg 25-34 Automated erythrocyte mean corpuscular hemoglobin concentration measurement ( mass/volume) 32 g/dL 32-36 Automated erythrocyte distribution width ratio 15.2 % 10.0-14.5 Automated blood platelet count (count/volume) 318 10*3/uL 130-400 Automated blood platelet mean volume measurement 11.4 [foz_us] 7.4-10.4 Automated blood neutrophils/100 leukocytes 71 % 42-75 Automated blood lymphocytes/100 leukocytes 19 % 12-44 Blood monocytes/100 leukocytes 9 % 0-12 Automated blood eosinophils/100 leukocytes 1 % 0-10 Automated blood basophils/100 leukocytes 0 % 0-10 Blood neutrophils automated count (number/volume) 10.6 10*3 1.8-7.8 Blood lymphocytes automated count (number/volume) 2.8 10*3 1.0-4.0 Blood monocytes automated count (number/volume) 1.4 10*3 0.0-1.0 Automated eosinophil count 0.1 10*3/uL 0.0-0.3 Automated blood basophil count (count/volume) 0.0 10*3/uL 0.0-0.1 Blood type T Indirect antibody screen panel - 01/22/16 06:30 ABO+Rh group AP NRG Transfusion band number [id number] NRG Blood group antibody screen NEGATIVE NRG Complete blood count (CBC) with automated white blood cell (WBC) differential - 01/23/16 07:22 Blood leukocytes automated count (number/volume) 18.0 10*3/uL 4.3-11.0 Blood erythrocytes automated count (number/volume) 3.58 10*6/uL 4.35-5.85 Venous blood hemoglobin measurement (mass/volume) 9.4 g/dL 11.5-16.0 Blood hematocrit (volume fraction) 30 % 35-52 Automated erythrocyte mean corpuscular volume 82 [foz_us] 80-99 Automated erythrocyte mean corpuscular hemoglobin (mass per erythrocyte) 26 pg 25-34 Automated erythrocyte mean corpuscular hemoglobin concentration measurement ( mass/volume) 32 g/dL 32-36 Automated erythrocyte distribution width ratio 15.3 % 10.0-14.5 Automated blood platelet count (count/volume) 306 10*3/uL 130-400 Automated blood platelet mean volume measurement 11.2 [foz_us] 7.4-10.4 Automated blood neutrophils/100 leukocytes 74 % 42-75 Automated blood lymphocytes/100 leukocytes 18 % 12-44 Blood monocytes/100 leukocytes 8 % 0-12 Automated blood eosinophils/100 leukocytes 0 % 0-10 Automated blood basophils/100 leukocytes 0 % 0-10 Blood neutrophils automated count (number/volume) 13.3 10*3 1.8-7.8 Blood lymphocytes automated count (number/volume) 3.2 10*3 1.0-4.0 Blood monocytes automated count (number/volume) 1.5 10*3 0.0-1.0 Automated eosinophil count 0.1 10*3/uL 0.0-0.3 Automated blood basophil count (count/volume) 0.0 10*3/uL 0.0-0.1 Complete blood count (CBC) with automated white blood cell (WBC) differential - 02/05/16 05:15 Blood leukocytes automated count (number/volume) 11.3 10*3/uL 4.3-11.0 Blood erythrocytes automated count (number/volume) 4.71 10*6/uL 4.35-5.85 Venous blood hemoglobin measurement (mass/volume) 12.4 g/dL 11.5-16.0 Blood hematocrit (volume fraction) 39 % 35-52 Automated erythrocyte mean corpuscular volume 83 [foz_us] 80-99 Automated erythrocyte mean corpuscular hemoglobin (mass per erythrocyte) 26 pg 25-34 Automated erythrocyte mean corpuscular hemoglobin concentration measurement ( mass/volume) 32 g/dL 32-36 Automated erythrocyte distribution width ratio 16.0 % 10.0-14.5 Automated blood platelet count (count/volume) 360 10*3/uL 130-400 Automated blood platelet mean volume measurement 10.3 [foz_us] 7.4-10.4 Automated blood neutrophils/100 leukocytes 76 % 42-75 Automated blood lymphocytes/100 leukocytes 15 % 12-44 Blood monocytes/100 leukocytes 7 % 0-12 Automated blood eosinophils/100 leukocytes 1 % 0-10 Automated blood basophils/100 leukocytes 0 % 0-10 Blood neutrophils automated count (number/volume) 8.6 10*3 1.8-7.8 Blood lymphocytes automated count (number/volume) 1.7 10*3 1.0-4.0 Blood monocytes automated count (number/volume) 0.8 10*3 0.0-1.0 Automated eosinophil count 0.1 10*3/uL 0.0-0.3 Automated blood basophil count (count/volume) 0.0 10*3/uL 0.0-0.1 Comprehensive metabolic panel - 02/05/16 05:15 Serum or plasma sodium measurement (moles/volume) 142 mmol/L 135-145 Serum or plasma potassium measurement (moles/volume) 4.1 mmol/L 3.6-5.0 Serum or plasma chloride measurement (moles/volume) 109 mmol/L 98-107 Carbon dioxide 21 mmol/L 21-32 Serum or plasma anion gap determination (moles/volume) 12 mmol/L 5-14 Serum or plasma urea nitrogen measurement (mass/volume) 14 mg/dL 7-18 Serum or plasma creatinine measurement (mass/volume) 0.96 mg/dL 0.60-1.30 Serum or plasma urea nitrogen/creatinine mass ratio 15 NRG Serum or plasma creatinine measurement with calculation of estimated glomerular filtration rate > NRG Serum or plasma glucose measurement (mass/volume) 98 mg/dL 70-105 Serum or plasma calcium measurement (mass/volume) 9.1 mg/dL 8.5-10.1 Serum or plasma total bilirubin measurement (mass/volume) 0.4 mg/dL 0.1-1.0 Serum or plasma alkaline phosphatase measurement (enzymatic activity/volume) 121 U/L 40-136 Serum or plasma aspartate aminotransferase measurement (enzymatic activity/ volume) 17 U/L 5-34 Serum or plasma alanine aminotransferase measurement (enzymatic activity/volume ) 17 U/L 0-55 Serum or plasma protein measurement (mass/volume) 7.5 g/dL 6.4-8.2 Serum or plasma albumin measurement (mass/volume) 4.0 g/dL 3.2-4.5 Serum or plasma amylase measurement (enzymatic activity/volume) - 02/05/16 05: 15 Serum or plasma amylase measurement (enzymatic activity/volume) 35 U /L 25-125 Lipase - 02/05/16 05:15 Lipase 19 U/L 8-78 Bacterial blood culture - 02/05/16 05:15 Bacterial blood culture NG NRG Bacterial blood culture - 02/05/16 05:15 Bacterial blood culture NG NRG Complete urinalysis with reflex to culture - 02/05/16 06:22 Urine color determination YELLOW NRG Urine clarity determination CLEAR NRG Urine pH measurement by test strip 6 5-9 Specific gravity of urine by test strip 1.015 1.016- 1.022 Urine protein assay by test strip, semi-quantitative NEGATIVE NEGATIVE Urine glucose detection by automated test strip NEGATIVE NEGATIVE Erythrocytes detection in urine sediment by light microscopy NEGATIVE NEGATIVE Urine ketones detection by automated test strip NEGATIVE NEGATIVE Urine nitrite detection by test strip NEGATIVE NEGATIVE Urine total bilirubin detection by test strip NEGATIVE NEGATIVE Urine urobilinogen measurement by automated test strip (mass/volume) NORMAL NORMAL Urine leukocyte esterase detection by dipstick 2+ NEGATIVE Automated urine sediment erythrocyte count by microscopy (number/high power field) NONE NRG Automated urine sediment leukocyte count by microscopy (number/high power field ) [HPF] NRG Bacteria detection in urine sediment by light microscopy TRACE NRG Squamous epithelial cells detection in urine sediment by light microscopy 5-10 NRG Crystals detection in urine sediment by light microscopy NONE NRG Casts detection in urine sediment by light microscopy PRESENT NRG Mucus detection in urine sediment by light microscopy NEGATIVE NRG Complete urinalysis with reflex to culture NO NRG Hyaline casts detection in urine sediment by light microscopy 5-10 NRG Other elements identification in urine sediment by light microscopy RARE TRANS EPI NRG CBC With Differential/Platelet - 08/07/16 08:45 WBC 8.2 x10E3/uL 3.4-10.8 RBC 4.64 x10E6/uL 3.77-5.28 Hemoglobin 12.2 g/dL 11.1-15.9 Hematocrit 38.7 % 34.0-46.6 MCV 83 fL 79-97 MCH 26.3 pg 26.6-33.0 MCHC 31.5 g/dL 31.5-35.7 RDW 15.7 % 12.3-15.4 Platelets 377 x10E3/uL 150-379 Neutrophils 57 % Lymphs 32 % Monocytes 8 % Eos 3 % Basos 0 % Neutrophils (Absolute) 4.6 x10E3/uL 1.4-7.0 Lymphs (Absolute) 2.7 x10E3/uL 0.7-3.1 Monocytes(Absolute) 0.7 x10E3/uL 0.1-0.9 Eos (Absolute) 0.2 x10E3/uL 0.0-0.4 Baso (Absolute) 0.0 x10E3/uL 0.0-0.2 Immature Granulocytes 0 % Immature Grans (Abs) 0.0 x10E3/uL 0.0-0.1 Comp. Metabolic Panel (14) - 08/07/16 08:45 Glucose, Serum 76 mg/dL 65-99 BUN 9 mg/dL 6-20 Creatinine, Serum 0.69 mg/dL 0.57-1.00 eGFR If NonAfricn Am 120 mL/min/1.73 >59 eGFR If Africn Am 138 mL/min/1.73 >59 BUN/Creatinine Ratio 13 9-23 Sodium, Serum 142 mmol/L 134-144 Potassium, Serum 4.3 mmol/L 3.5-5.2 Chloride, Serum 108 mmol/L 96-106 Carbon Dioxide, Total 20 mmol/L 18-29 Calcium, Serum 8.8 mg/dL 8.7-10.2 Protein, Total, Serum 6.4 g/dL 6.0-8.5 Albumin, Serum 3.9 g/dL 3.5-5.5 Globulin, Total 2.5 g/dL 1.5-4.5 A/G Ratio 1.6 1.2-2.2 Bilirubin, Total 0.3 mg/dL 0.0-1.2 Alkaline Phosphatase, S 78 IU/L 39-117 AST (SGOT) 11 IU/L 0-40 ALT (SGPT) 10 IU/L 0-32 Lipid Panel - 08/07/16 08:45 Cholesterol, Total 134 mg/dL 100-199 Triglycerides 78 mg/dL 0-149 HDL Cholesterol 40 mg/dL >39 VLDL Cholesterol Jose 16 mg/dL 5-40 LDL Cholesterol Calc 78 mg/dL 0-99 Hemoglobin A1c - 08/07/16 08:45 Hemoglobin A1c 5.3 % 4.8-5.6 Thyroid [place] Profile - 08/07/16 08:45 TSH 3.600 uIU/mL 0.450-4.500 Encounters ACCT No. Visit Date/Time Discharge Status Pt. Type Provider Facility Loc./Unit Complaint [id number] 07/27/2014 14:33:00 07/27/2014 23:59:59 CLS Outpatient JENN ROSARIO MD [id number] 07/20/2014 14:40:00 07/20/2014 23:59:59 CLS Outpatient JENN ROSARIO MD [id number] 07/13/2014 14:24:00 07/13/2014 23:59:59 CLS Outpatient JENN ROSARIO MD [id number] 06/29/2014 14:50:00 06/29/2014 23:59:59 [place]NER Outpatient JENN ROSARIO MD [id number] 05/11/2014 14:00:00 05/11/2014 23:59:59 CLS Outpatient JENN ROSARIO MD [id number] 04/13/2014 14:00:00 04/13/2014 23:59:59 CLS Outpatient JENN ROSARIO MD [id number] 03/18/2014 14:23:00 03/18/2014 23:59:59 CLS Outpatient ROSA LEMUS APRN [id number] 02/16/2014 15:16:00 02/16/2014 23:59:59 CLS Outpatient JOSE CALDWELL APRNIDI Krystin [id number] 01/19/2014 14:19:00 01/19/2014 23:59:59 CLS Outpatient BRANDEE NICHOLE DO [id number] 01/07/2014 13:16:00 01/07/2014 23:59:59 CLS Outpatient ANGELINA HAGAN MD [id number] 01/04/2014 16:16:00 01/04/2014 23:59:59 CLS Outpatient KARINE CALDWELL APRN Krystin [id number] 09/13/2013 13:31:00 09/13/2013 23:59:59 CLS Outpatient NEWTON LÓPEZ APRN Kylee [id number] 02/05/2016 03:43:00 02/05/2016 07:13:00 DIS Emergency JAMI CASTRO MD [facility] ER VAGINAL BLEEDING [id number] 01/22/2016 06:08:00 01/24/2016 13:58:00 DIS Inpatient SYLVESTER SINGLETARY DO S [facility] LDRP PREVIOUS SECTION [id number] 01/22/2016 06:05:00 01/22/2016 06:05:00 CAN Preadmit SYLVESTER SINGLETARY DO S [facility] WSo CONTRACTIONS [id number] 01/17/2016 13:48:00 01/17/2016 14:16:00 DIS Outpatient SYLVESTER SINGLETARY DO S [facility] PREOP PREVIOUS SECTION [id number] 11/15/2015 09:55:00 11/15/2015 23:59:59 CLS Outpatient JENN ROSARIO MD [facility] RAD CARE [id number] 09/26/2015 14:30:00 09/26/2015 23:59:59 CLS Outpatient JENN ROSARIO MD [facility] RAD SURVEY, CARE [id number] 07/03/2015 22:17:00 07/04/2015 01:36:00 DIS Emergency RADHA DICKENS MD [facility] ER CRAMPING AT 11 WEEKS [id number] 06/23/2015 09:51:00 06/23/2015 23:59:59 CLS Outpatient ALEXANDERBRAYANAWAMARIBEL APRN [facility] RAD DATING [id number] 06/02/2015 19:37:00 06/02/2015 23:59:59 CLS Emergency ANABELA SHAH DO [facility] ER ABD PAIN [id number] 08/14/2014 19:16:00 08/18/2014 17:30:00 DIS Inpatient JENN ROSARIO MD [facility] LDRP INDUCTION [id number] 07/25/2014 11:37:00 07/25/2014 12:30:00 DIS Outpatient JENN ROSARIO MD [facility] WSo VOMITING/DIARRHEA [id number] 07/03/2014 20:44:00 07/03/2014 21:56:00 DIS Outpatient ANGELINA HAGAN MD [facility] WSo NOT FEELING BABY MOVE, ABD PAIN [id number] 04/19/2014 11:16:00 04/19/2014 23:59:59 CLS Outpatient JENN ROSARIO MD [facility] RAD INCOMPLETE SURVEY [id number] 03/22/2014 14:52:00 03/22/2014 23:59:59 CLS Outpatient JENN ROSARIO MD [facility] RAD SURVEY [id number] 01/11/2014 14:15:00 01/11/2014 23:59:59 CLS Outpatient KARINE CALDWELL [employer]ATING [employer]INE [employer] [facility] RAD [id number] 10/24/2013 09:22:00 10/24/2013 10:50:00 DIS Emergency JAMI CASTRO MD [facility] ER LABS [id number] 10/23/2013 10:57:00 10/23/2013 14:20:00 DIS Emergency JAMI CASTRO MD [facility] ER [id number] 09/30/2013 06:05:00 09/30/2013 11:00:00 DIS Outpatient ANISA HELMS MD [facility] SDC DEMISE [id number] 09/29/2013 07:17:00 09/29/2013 23:59:59 CLS Outpatient ANALIA MOONEY, ANISA Dominguez [facility] PREOP [id number] 09/28/2013 05:03:00 09/28/2013 06:26:00 DIS Emergency MANINDER MOONEY, RADHA Betancourt [facility] ER POSS ,7 WKS PREG [id number] 09/23/2013 06:47:00 09/23/2013 10:45:00 DIS Emergency MANINDER MOONEY, RADHA Betancourt [facility] ER POSS MISCARRIAGE-VAG BLEEDING-6 WKS PREG [id number] 07/02/2013 23:38:00 07/03/2013 00:09:00 DIS Emergency KARELY MOONEY, CASS Mcclelland [facility] ER RT EAR PAIN [id number] 06/08/2014 19:32:00 Document Registration [id number] 01/07/2016 07:05:00 Document Registration [id number] 02/20/2017 13:20:00 02/20/2017 23:59:59 CLS Outpatient BECCA FRANCE [facility] [id number] 08/08/2016 12:12:00 Document Registration
[2017-09-24 20:18] LABS: BASOPHILS % (AUTO) 0 % (0-10); EOSINOPHILS # (AUTO) 0.2 10^3/uL (0.0-0.3); EOSINOPHILS % (AUTO) 3 % (0-10); HEMATOCRIT 25 % (35-52); LYMPHOCYTES # (AUTO) 2.3 X 10^3 (1.0-4.0); LYMPHOCYTES % (AUTO) 27 % (12-44); MEAN CORPUSCULAR HEMOGLOBIN 26 PG (25-34); MEAN CORPUSCULAR HGB CONC 32 G/DL (32-36); MEAN CORPUSCULAR VOLUME 82 FL (80-99); MEAN PLATELET VOLUME 9.9 FL (7.4-10.4); MONOCYTES % (AUTO) 12 % (0-12); NEUTROPHILS # (AUTO) 5.1 X 10^3 (1.8-7.8); NEUTROPHILS % (AUTO) 59 % (42-75); PLATELET COUNT 326 10^3/uL (130-400); RED BLOOD COUNT 3.07 10^6/uL (4.35-5.85); RED CELL DISTRIBUTION WIDTH 16.6 % (10.0-14.5); WHITE BLOOD COUNT 8.6 10^3/uL (4.3-11.0)
[2017-09-24 20:30] LABS: PROTHROMBIN TIME PATIENT 13.1 SEC (12.2-14.7)
[2017-09-24 20:39] LABS: ALANINE AMINOTRANSFERASE 9 U/L (0-55); ALBUMIN 2.7 GM/DL (3.2-4.5); ALKALINE PHOSPHATASE 81 U/L (40-136); BILIRUBIN,TOTAL 0.2 MG/DL (0.1-1.0); BUN/CREATININE RATIO 17; CALCIUM 8.5 MG/DL (8.5-10.1); CARBON DIOXIDE 21 MMOL/L (21-32); CHLORIDE 109 MMOL/L (98-107); CREATININE SERUM 0.75 MG/DL (0.60-1.30); GFR ESTIMATED > 60; GLUCOSE 80 MG/DL (70-105); MAGNESIUM 1.6 MG/DL (1.8-2.4); POTASSIUM 3.9 MMOL/L (3.6-5.0); SODIUM 140 MMOL/L (135-145); TOTAL PROTEIN 5.6 GM/DL (6.4-8.2)
--- NOTE | 2017-09-24 20:42 | ED General ---
General Chief Complaint: Abdominal/GI Problems Stated Complaint: BRUISING AND SWELLING AFTER Nursing Triage Note: PT PRESENTS TO ER WITH COMPLAINT OF BRUISING AND PAIN AFTER HAVING A CSECTION. PT HAD C SECTION ON FRIDAY, AND STATES HER BRUISING HAS INCREASED. Nursing Sepsis Screen: No Definite Risk Source of Information: Patient Exam Limitations: No Limitations History of Present Illness Date Seen by Provider: Sep 24, 2017 Time Seen by Provider: 19:24 Initial Comments HAD ON Friday09/20/[address] BIGGS AT [facility]. Allergies and Home Medications Allergies Coded Allergies: codeine (Unverified Allergy, Mild, 08/24/08) Sulfa (Sulfonamide Antibiotics) (Unverified Adverse Reaction, Unknown, ) quetiapine (Unverified Adverse Reaction, Unknown, 07/03/15) Home Medications Albuterol Sulfate 8.5 Gm Hfa.aer.ad, 1-2 PUFF IH Q4H PRN for SHORTNESS OF BREATH , (Reported) Docusate Sodium 100 Mg Capsule, 100 MG PO BID Prescribed by: SPENCER BRIGHT on 01/24/16 0820 Ferrous Sulfate 325 Mg Tablet, 325 MG PO BID Prescribed by: SPENCER BRIGHT on 01/24/16 0820 Hydrocodone Bit/Acetaminophen 1 Each Tablet, 1-2 TAB PO Q4H PRN for PAIN Prescribed by: SPENCER BRIGHT on 01/24/16 0820 Hydrocodone/Acetaminophen 1 Each Tablet, 1 EACH PO Q4H Prescribed by: SPENCER BRIGHT on 01/24/16 0822 Ibuprofen 600 Mg Tablet, 600 MG PO Q6H Prescribed by: SPENCER BRIGHT on 01/24/16 0820 Past Yjgberh-Onlwuj-Bxocog Hx Patient Social History Alcohol Use: Denies Use Recreational Drug Use: No (LAST SMOKED POT JUST PRIOR TO PG) Smoking Status: Never a Smoker Former Smoker, Quit: May 08, 2015 Recent Foreign Travel: No Contact w/Someone Who Travel: No Recent Infectious Disease Expo: No Recent Hopitalizations: No Immunizations Up To Date Tetanus Booster (TDap): Less than 5yrs PED Vaccines UTD: Yes Date of Influenza Vaccine: Jun 19, 2015 Seasonal Allergies Seasonal Allergies: No Past Medical History Surgeries: Yes (D&C, BMT'S ; X 3) Adenoidectomy, Section, Ear Surgery, Tonsillectomy, Tubal Ligation Respiratory: No Cardiac: No Neurological: No Reproductive Disorders: No Female Reproductive Disorders: Denies Sexually Transmitted Disease: Yes (TRICHOMONIASIS) Gastrointestinal: Yes Gastroesophageal Reflux Musculoskeletal: No Endocrine: No Hyperthyroidism Cancer: No Psychosocial: Yes Anxiety, Bipolar, Personality Disorder, Depression Integumentary: No Blood Disorders: Yes (ANEMIA WITH ) Adverse Reaction/Blood Tranf: No Family Medical History Diabetes mellitus 19 FATHER, Onset:50's - 60 Kidney disease 19 MOTHER, Onset:30's - 40 Seizure disorder G8 BROTHER, Onset:20's - 25 (MVA) No Family History of: AIDS Abdominal aortic aneurysm [place]'s disease Alcoholism Alzheimer's disease Aphasia Arthritis Asthma Cancer of mouth Cardiovascular disease Cataracts Colon cancer Completed stroke Congenital disease Congenital heart disease Coronary thrombosis Cystic fibrosis Deafness or hearing loss Dementia Drug abuse Dysphasia Fibrocystic disease of breast Gastroenteritis Glaucoma Headache disorder Hypercholesterolemia Hypertension Infertility Myocardial infarction Neoplasm Not obtainable due to adoption Osteoporosis Parkinson's disease Prostate cancer Psychosocial problem Respiratory disorder Severe allergy Thyroid disease Tuberculosis Visual disorder Physical Exam Vital Signs Vital Signs - First Documented 09/24/17 19:25 Temp 98.0 Pulse 85 Resp 20 B/P (MAP) 168/102 (124) Pulse Ox 99 O2 Delivery Room Air Capillary Refill : Less Than 3 Seconds Focused Exam Lactate Level 09/24/17 20:10: Lactic Acid Level 1.42 Lactic Acid Level Laboratory Tests Test 09/24/17 20:10 Lactic Acid Level 1.42 MMOL/L (0.50-2.00) Progress/Results/Core Measures Suspected Sepsis Recent Fever Within 48 Hours: No Infection Criteria Present: None New/Unexplained Altered Menta: No Sepsis Screen: No Definite Risk SIRS Temperature:98.0 Pulse: 85 Respiratory Rate: 20 Laboratory Tests 09/24/17 20:10: White Blood Count 8.6 Blood Pressure 168 /102 Mean: 124 09/24/17 20:10: Lactic Acid Level 1.42 Laboratory Tests 09/24/17 20:10: Creatinine 0.75, INR Comment 1.0, Platelet Count 326, Total Bilirubin 0.2 Results/Orders Lab Results Laboratory Tests Test 09/24/17 20:10 Range/Units White Blood Count 8.6 4.3-11.0 10^3/uL Red Blood Count 3.07 L 4.35-5.85 10^6/uL Hemoglobin 8.0 L 11.5-16.0 G/DL Hematocrit 25 L 35-52 % Mean Corpuscular Volume 82 80-99 FL Mean Corpuscular Hemoglobin 26 25-34 PG Mean Corpuscular Hemoglobin Concent 32 32-36 G/DL Red Cell Distribution Width 16.6 H 10.0-14.5 % Platelet Count 326 130-400 10^3/uL Mean Platelet Volume 9.9 7.4-10.4 FL Neutrophils (%) (Auto) 59 42-75 % Lymphocytes (%) (Auto) 27 12-44 % Monocytes (%) (Auto) 12 0-12 % Eosinophils (%) (Auto) 3 0-10 % Basophils (%) (Auto) 0 0-10 % Neutrophils # (Auto) 5.1 1.8-7.8 X 10^3 Lymphocytes # (Auto) 2.3 1.0-4.0 X 10^3 Monocytes # (Auto) 1.0 0.0-1.0 X 10^3 Eosinophils # (Auto) 0.2 0.0-0.3 10^3/uL Basophils # (Auto) 0.0 0.0-0.1 10^3/uL Prothrombin Time 13.1 12.2-14.7 SEC INR Comment 1.0 0.8-1.4 Activated Partial Thromboplast Time 23 L 24-35 SEC Sodium Level 140 135-145 MMOL/L Potassium Level 3.9 3.6-5.0 MMOL/L Chloride Level 109 H 98-107 MMOL/L Carbon Dioxide Level 21 21-32 MMOL/L Anion Gap 10 5-14 MMOL/L Blood Urea Nitrogen 13 7-18 MG/DL Creatinine 0.75 0.60-1.30 MG/DL Estimat Glomerular Filtration Rate > 60 BUN/Creatinine Ratio 17 Glucose Level 80 70-105 MG/DL Lactic Acid Level 1.42 0.50-2.00 MMOL/L Calcium Level 8.5 8.5-10.1 MG/DL Magnesium Level 1.6 L 1.8-2.4 MG/DL Total Bilirubin 0.2 0.1-1.0 MG/DL Aspartate Amino Transf (AST/SGOT) 14 5-34 U/L Alanine Aminotransferase (ALT/SGPT) 9 0-55 U/L Alkaline Phosphatase 81 40-136 U/L B-Type Natriuretic Peptide 170.4 H <100.0 PG/ML Total Protein 5.6 L 6.4-8.2 GM/DL Albumin 2.7 L 3.2-4.5 GM/DL My Orders Orders - ANABELA SHAH DO Saline Lock/Iv-Start (09/24/17 19:32) Monitor-Rhythm Ecg Trace Only (09/24/17:32) BNP (09/24/17:32) Cbc With Automated Diff (09/24/17:32) Comprehensive Metabolic Panel (09/24/17:32) Lactic Acid Analyzer (09/24/17:32) Magnesium (09/24/17:32) Protime With Inr (09/24/17:) Partial Thromboplastin Time (09/24/17:32) Blood Culture (09/24/17:32) Us Pelvic (Non Ob)22938 (09/24/17 19:32) Magnesium Oxide Tablet (Mag Ox Tablet) (09/24/17 20:45) Medications Given in ED Current Medications Medications Dose Ordered Sig/Chandu Route Start Time Stop Time Status Last Admin Dose Admin Magnesium Oxide 1,200 mg ONCE ONCE PO 09/24/17 20:45 09/24/17 20:46 UNV 09/24/17 20:51 1,200 MG Vital Signs/I&O 09/24/17 19:25 Temp 98.0 Pulse 85 Resp 20 B/P (MAP) 168/102 (124) Pulse Ox 99 O2 Delivery Room Air Capillary Refill : Less Than 3 Seconds Blood Pressure Mean: 124 Diagnostic Imaging Comments PELVIC ULTRASOUND--NO RETAINED PRODUCTS, NO HEMATOMA --PER WATCH PARTS GRINDER AT 2035 Reviewed: Reviewed by Me Departure Impression Primary Impression: Post-operative pain Additional Impressions: Postoperative ecchymosis S/P Anemia Hypomagnesemia Disposition: 01 HOME, SELF-CARE Condition: Stable Departure-Patient Inst. Referrals: JENN ROSARIO MD (PCP/Family) Primary Care Physician Patient Instructions: Anemia Caused by Low Iron, Adult (DC), Bleeding After Surgery, Low Magnesium Level (DC), Postoperative Pain (DC) Add. Discharge Instructions: LOTS OF CLEAR LIQUIDS FOLLOW ALL POST OP INSTRUCTIONS TAKE YOUR HOME PAIN MEDICATIONS PRESCRIBED CONTINUE YOUR IRON PRESCRIBED AND INCREASE IRON AND PROTEIN IN YOUR DIET. ADDITIONALLY, TAKE A MULTI-VITAMIN EVERY DAY ICE TO AREA AT 20 MINUTE INTERVALS FOLLOW UP WITH YOUR ASSOCIATE SALES MANAGER THIS WEEK FOR FURTHER CARE All discharge instructions reviewed with patient and/or family. Voiced understanding. ANABELA SHAH DO Sep 24, 2017 20:42
[2017-09-24] MEDS ORDERED: MAGNESIUM OXIDE (MAG-OX)400 MG TAB PO ONE (20:45)
[2017-09-24] MEDS ORDERED: MAGNESIUM OXIDE (MAG-OX)400 MG TAB ONE (20:49)
--- NOTE | 2017-09-24 20:55 | Diagnostic Imaging Report ---
PROCEDURE: US PELVIC (NON OB) TECHNIQUE: Multiple real-time grayscale images were obtained over the pelvis in various projections transabdominally. INDICATION: Bruising and swelling in the lower abdomen approximately four days after section. FINDINGS: uterus measures 14 x 9.5 x 7.9 cm with a small amount of fluid in the endometrium. Maximum endometrial thickness is 1.3 cm. Neither ovary is definitely visualized. There is a small amount of pelvic free fluid. No focal fluid collection is identified. IMPRESSION: Enlarged uterus without evidence of suspicious fluid collection to indicate hematoma. Dictated by: Dictated on workstation # [id number]
[2017-09-24 21:00] VITALS: BP 144/93
== END 2017-09-24 21:00 | disposition home or self-care (01) ==
LOC: EDUNIT# 18:20 → ER 18:21
DX: O75.4 Other complications of obstetric surgery and procedures (principal); O90.81 Anemia of the puerperium; O99.285 Endocrine, nutritional and metabolic diseases complicating the puerperium; E83.42 Hypomagnesemia; E05.90 Thyrotoxicosis, unspecified without thyrotoxic crisis or storm; O99.345 Other mental disorders complicating the puerperium; F41.9 Anxiety disorder, unspecified; F31.9 Bipolar disorder, unspecified; F20.9 Schizophrenia, unspecified; O99.63 Diseases of the digestive system complicating the puerperium; K21.9 Gastro-esophageal reflux disease without esophagitis; Z90.89 Acquired absence of other organs; Z98.51 Tubal ligation status; Z88.2 Allergy status to sulfonamides; Z88.6 Allergy status to analgesic agent; Z87.59 Personal history of other complications of pregnancy, childbirth and the puerperium
CPT/HCPCS: 36415; 76856; 80053; 83605; 83735; 83880; 85025; 85610; 85730; 87040; 93041

== ENCOUNTER 2017-10-07 23:01 | Emergency (ER) | payer MEDICAID ==
[~2017-10-07] VITALS: Ht 160 cm; Wt 136.3 kg
--- NOTE | 2017-10-08 | ED GU-Female ---
General Chief Complaint: -Female Stated Complaint: 2 WKS AGO,VAG BLEEDING,GUSHING Nursing Triage Note: patient reports having a 2 weeks ago. 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 patient reports that she felt something pull or tear. reports this started about 2200. patient reports going through 3 or 4 pads Nursing Sepsis Screen: No Definite Risk Source: patient, family (mom) Exam Limitations: no limitations History of Present Illness Date Seen by Provider: Oct 07, 2017 Time Seen by Provider: 23:45 Initial Comments The patient presents to the ER by private conveyance with her mother and a chief complaint that tonight she just came off her lifting restrictions after her and she lifted her kids and then had a large gush of fluid and blood from her vagina. She says while she was on the toilet and about 2-3 hours she used 3 heavy maximum duty pads. Patient says she is a G3 for PE 32 weeks by her third . She had her tubes tied this time. She is not having any nausea or pain in her abdomen or shortness of breath. She's having no fevers, chills or nausea right now. She does have discomfort when she urinates; a lot of pressure. Last intercourse was prior to . Allergies and Home Medications Allergies Coded Allergies: codeine (Unverified Allergy, Mild, 08/24/08) Sulfa (Sulfonamide Antibiotics) (Unverified Adverse Reaction, Unknown, ) quetiapine (Unverified Adverse Reaction, Unknown, 07/03/15) Home Medications Albuterol Sulfate 8.5 Gm Hfa.aer.ad, 1-2 PUFF IH Q4H PRN for SHORTNESS OF BREATH , (Reported) Docusate Sodium 100 Mg Capsule, 100 MG PO BID Prescribed by: SPENCER BRIGHT on 01/24/16819 Ferrous Sulfate 325 Mg Tablet, 325 MG PO BID Prescribed by: SPENCER BRIGHT on 01/24/16819 Hydrocodone Bit/Acetaminophen 1 Each Tablet, 1-2 TAB PO Q4H PRN for PAIN Prescribed by: SPENCER BRIGHT on 01/24/16819 Hydrocodone/Acetaminophen 1 Each Tablet, 1 EACH PO Q4H Prescribed by: SPENCER BRIGHT on 10/19/16 0822 Ibuprofen 600 Mg Tablet, 600 MG PO Q6H Prescribed by: SPENCER BRIGHT on 01/24/16 0820 Patient Home Medication List Home Medication List Reviewed: Yes Review of Systems Constitutional: No chills, No diaphoresis, No fever, No malaise EENTM: No ear discharge, No ear pain Respiratory: No cough, No hemoptysis, No short of breath Cardiovascular: No chest pain, No edema Gastrointestinal: No abdominal pain, No constipation, No diarrhea Genitourinary: burning; denies discharge, denies dysuria; hematuria Musculoskeletal: No back pain, No joint pain Skin: No pruritus, No rash Psychiatric/Neurological: Denies Headache, Denies Numbness Past Vhkoqjm-Jgaxkq-Xhcfum Hx Patient Social History Alcohol Use: Denies Use Recreational Drug Use: No Smoking Status: Former Smoker Former Smoker, Quit: May 08, 2015 Recent Foreign Travel: No Contact w/Someone Who Travel: No Recent Infectious Disease Expo: No Recent Hopitalizations: No Immunizations Up To Date Tetanus Booster (TDap): Less than 5yrs PED Vaccines UTD: Yes Date of Influenza Vaccine: Jun 19, 2015 Seasonal Allergies Seasonal Allergies: No Past Medical History Surgeries: Yes (D&C, BMT'S ; X 3) Adenoidectomy, Section, Ear Surgery, Tonsillectomy, Tubal Ligation Respiratory: No Cardiac: No Neurological: No Reproductive Disorders: No Female Reproductive Disorders: Denies Sexually Transmitted Disease: Yes (TRICHOMONIASIS) Gastrointestinal: Yes Gastroesophageal Reflux Musculoskeletal: No Endocrine: No Hyperthyroidism Cancer: No Psychosocial: Yes Anxiety, Bipolar, Personality Disorder, Depression Integumentary: No Blood Disorders: Yes (ANEMIA WITH ) Adverse Reaction/Blood Tranf: No Family Medical History Diabetes mellitus 19 FATHER, Onset:50's - 60 Kidney disease 19 MOTHER, Onset:30's - 40 Seizure disorder G8 BROTHER, Onset:20's - 25 (MVA) No Family History of: AIDS Abdominal aortic aneurysm [place]'s disease Alcoholism Alzheimer's disease Aphasia Arthritis Asthma Cancer of mouth Cardiovascular disease Cataracts Colon cancer Completed stroke Congenital disease Congenital heart disease Coronary thrombosis Cystic fibrosis Deafness or hearing loss Dementia Drug abuse Dysphasia Fibrocystic disease of breast Gastroenteritis Glaucoma Headache disorder Hypercholesterolemia Hypertension Infertility Myocardial infarction Neoplasm Not obtainable due to adoption Osteoporosis Parkinson's disease Prostate cancer Psychosocial problem Respiratory disorder Severe allergy Thyroid disease Tuberculosis Visual disorder Physical Exam Vital Signs Vital Signs - First Documented 10/07/17 23:09 Temp 99.3 Pulse 91 Resp 18 B/P (MAP) 143/114 (124) Pulse Ox 99 Capillary Refill : Less Than 3 Seconds General Appearance: WD/WN, no apparent distress HEENT: PERRL/EOMI, pharynx normal Cardiovascular: normal peripheral pulses, regular rate, rhythm Respiratory: no respiratory distress, no accessory muscle use Gastrointestinal: normal bowel sounds, non tender, soft, other (clean, well approximated lower abdominal Pfannenstiel incision. Little area of moisture and erythema on the left border with an odor of yeast.) Genital/Rectal: normal genital exam, other (vaginal vault with a reddish brown thin secretion and closed cervix. No lacerations. No membranes or foreign body.) Extremities: normal range of motion, normal capillary refill Neurologic/Psychiatric: alert, oriented x 3 Skin: other (malodorous, moist skin on the left edge of the lower abdominal wound.) Progress/Results/Core Measures Suspected Sepsis Recent Fever Within 48 Hours: No Infection Criteria Present: None New/Unexplained Altered Menta: No Sepsis Screen: No Definite Risk SIRS Temperature:99.3 Pulse: 91 Respiratory Rate: 18 Blood Pressure 143 /114 Mean: 124 Results/Orders Lab Results Laboratory Tests Test 10/07/17 23:58 Range/Units Urine Color YELLOW Urine Clarity CLEAR Urine pH 5 5-9 Urine Specific [place] 1.025 H 1.016-1.022 Urine Protein 1+ H NEGATIVE Urine Glucose (UA) NEGATIVE NEGATIVE Urine Ketones NEGATIVE NEGATIVE Urine Nitrite NEGATIVE NEGATIVE Urine Bilirubin NEGATIVE NEGATIVE Urine Urobilinogen NORMAL NORMAL MG/DL Urine Leukocyte Esterase 1+ H NEGATIVE Urine RBC (Auto) 5+ H NEGATIVE Urine RBC 5-10 H /HPF Urine WBC 0-2 /HPF Urine Squamous Epithelial Cells 2-5 /HPF Urine Crystals NONE /LPF Urine Bacteria TRACE /HPF Urine Casts NONE /LPF Urine Mucus SMALL H /LPF Urine Culture Indicated NO My Orders Orders - LYNSEY WRIGHT Ua Culture If Indicated (10/07/17 23:55) Wet Prep (10/08/17 01:00) Vital Signs/I&O 10/07/17 23:09 Temp 99.3 Pulse 91 Resp 18 B/P (MAP) 143/114 (124) Pulse Ox 99 Capillary Refill : Less Than 3 Seconds Blood Pressure Mean: 124 Progress Note #1: Time: 23:59 Progress Note Our plan is to do a pelvic examination as well as urinalysis. She has otherwise surgically on acute abdomen. She says she's had D&Cs in the past and after having a seems unlikely to be any retained membranes. Her vitals are unremarkable and she is having a fever to suggest endometritis. Progress Note #2: Time: 01:36 Progress Note Wet prep has some white blood cells but no clue cells or red blood cells or anything else of concern. Odd considering the secretions were dark reddish- brown. Not sure what they would be then unless the blood has hemolyzed. We'll have her follow up outpatient with her mental health therapist. Departure Impression Primary Impression: Vaginal discharge Additional Impression: Candidal skin infection Disposition: 01 HOME, SELF-CARE Condition: Stable Departure-Patient Inst. Decision time for Depature: 01:37 Referrals: [facility] [place] (PCP) Primary Care Physician CHAVEZ BIGGS DO (Family) Primary Care Physician Patient Instructions: IRREGULAR VAGINAL BLEEDING Add. Discharge Instructions: Make plans to follow-up in the next 1-2 weeks with your mental health therapist/ environmental programs manager. All discharge instructions reviewed with patient and/or family. Voiced understanding. Copy Copies To 1: BRANDEE NICHOLE TITUS J Oct 08, 2017 00:00
[2017-10-08 00:02] LABS: BILIRUBIN,URINE NEGATIVE (NEGATIVE); CLARITY,URINE CLEAR; COLOR,URINE YELLOW; GLUCOSE, URINE (UA) NEGATIVE (NEGATIVE); KETONES,URINE NEGATIVE (NEGATIVE); LEUKOCYTE ESTERASE ,URINE 1+ (NEGATIVE); NITRITE,URINE NEGATIVE (NEGATIVE); PH,URINE 5 (5-9); PROTEIN,URINE 1+ (NEGATIVE); UROBILINOGEN,URINE NORMAL (NORMAL)
[2017-10-08 00:25] LABS: BACTERIA,URINE TRACE /HPF; WBC,URINE 0-2 /HPF
[2017-10-08] MEDS ORDERED: NYST1POW22 MC (01:43)
[2017-10-08 01:48] VITALS: BP 138/94
== END 2017-10-08 01:48 | disposition home or self-care (01) ==
LOC: EDUNIT# 23:01 → ER 23:04
DX: O99.89 Other specified diseases and conditions complicating pregnancy, childbirth and the puerperium (principal); N89.8 Other specified noninflammatory disorders of vagina; O98.83 Other maternal infectious and parasitic diseases complicating the puerperium; B37.2 Candidiasis of skin and nail; O99.63 Diseases of the digestive system complicating the puerperium; K21.9 Gastro-esophageal reflux disease without esophagitis; O99.285 Endocrine, nutritional and metabolic diseases complicating the puerperium; E05.90 Thyrotoxicosis, unspecified without thyrotoxic crisis or storm; O99.345 Other mental disorders complicating the puerperium; F41.9 Anxiety disorder, unspecified; F31.9 Bipolar disorder, unspecified; Z88.5 Allergy status to narcotic agent; Z88.2 Allergy status to sulfonamides; Z88.8 Allergy status to other drugs, medicaments and biological substances; Z79.51 Long term (current) use of inhaled steroids; Z87.891 Personal history of nicotine dependence; Z90.89 Acquired absence of other organs; Z87.59 Personal history of other complications of pregnancy, childbirth and the puerperium; Z98.51 Tubal ligation status
CPT/HCPCS: 81000; 87210; 99284

== ENCOUNTER 2019-06-02 22:11 | Emergency (ER) | payer SELFPAY ==
[~2019-06-02] VITALS: Ht 160 cm; Wt 140.4 kg
[~2019-06-02 22:11] MED LIST changes: +NYST1POW22 MC; +ONDA-105 PO; -ONDA4TAB10 PO; +PYRI50TA PO; -PYRI50TA10 PO
[2019-06-02] MEDS ORDERED: ORPHENADRINE 60 MG/2 ML (NORFLEX) AMP ONE (22:42)
[2019-06-02] MEDS ORDERED: KETOROLAC 30 MG/ML VIAL ONE (22:42)
[2019-06-02] MEDS ORDERED: ONDANSETRON 4 MG (ZOFRAN) ORAL DISSOLVE TAB ONE (22:42)
--- NOTE | 2019-06-02 23:40 | NUR ---
pt reports pain improving, erp notified.
[2019-06-03 00:05] VITALS: BP 124/89
--- NOTE | 2019-06-03 04:37 | ED General ---
General Chief Complaint: Head/Cervical Problems Stated Complaint: VOMITING, SORE NECK Nursing Triage Note: neck pain radiating to right shoulder after turning head while driving Nursing Sepsis Screen: No Definite Risk Source of Information: Patient Exam Limitations: No Limitations History of Present Illness Date Seen by Provider: Jun 02, 2019 Time Seen by Provider: 22:35 Initial Comments This 28-year-old woman presents to the emergency room with right-sided neck pain that started hurting after she turned her head while driving. She denies any headache. Pain became intense and she started to vomit. She took Motrin but then vomited the pills up. Symptoms started around 16:00. She has not experienced these symptoms in the past. She is still feeling nauseated at this time. Pain radiates down into her right shoulder. Allergies and Home Medications Allergies Coded Allergies: codeine (Unverified Allergy, Mild, 08/24/08) Sulfa (Sulfonamide Antibiotics) (Unverified Adverse Reaction, Unknown, 07/03/15) quetiapine (Unverified Adverse Reaction, Unknown, 07/03/15) Home Medications Albuterol Sulfate 8.5 Gm Hfa.aer.ad, 1-2 PUFF IH Q4H PRN for SHORTNESS OF BREATH, (Reported) Docusate Sodium 100 Mg Capsule, 100 MG PO BID Prescribed by: SPENCER BRIGHT on 01/24/16 0820 Ferrous Sulfate 325 Mg Tablet, 325 MG PO BID Prescribed by: SPENCER BRIGHT on 01/24/16 0820 Hydrocodone Bit/Acetaminophen 1 Each Tablet, 1-2 TAB PO Q4H PRN for PAIN Prescribed by: SPENCER BRIGHT on 01/24/16 0820 Hydrocodone/Acetaminophen 1 Each Tablet, 1 EACH PO Q4H Prescribed by: SPENCER BRIGHT on 01/24/16 0822 Ibuprofen 600 Mg Tablet, 600 MG PO Q6H Prescribed by: SPENCER BRIGHT on 01/24/16 0820 Nystatin 1 Each Powder.ea., 1 EACH MC BID Prescribed by: LYNSEY WRIGHT on 10/08/17 0143 Patient Home Medication List Home Medication List Reviewed: Yes Review of Systems Review of Systems Constitutional: no symptoms reported EENTM: no symptoms reported Respiratory: no symptoms reported Cardiovascular: no symptoms reported Gastrointestinal: no symptoms reported Genitourinary: no symptoms reported Musculoskeletal: see HPI Skin: no symptoms reported Psychiatric/Neurological: No Symptoms Reported Hematologic/Lymphatic: No Symptoms Reported Past Vtplywy-Sqemli-Qjnjlf Hx Past Med/Social Hx: Reviewed and Corrections made Patient Social History Alcohol Use: Denies Use Recreational Drug Use: No Drug of Choice: hx cannibus Smoking Status: Former Smoker Former Smoker, Quit: May 04, 2019 Recent Foreign Travel: No Contact w/Someone Who Travel: No Recent Infectious Disease Expo: No Recent Hopitalizations: No Physical Abuse: No Sexual Abuse: No Mistreated: No Fear: No Immunizations Up To Date Tetanus Booster (TDap): Less than 5yrs PED Vaccines UTD: Yes Date of Influenza Vaccine: Jun 19, 2015 Seasonal Allergies Seasonal Allergies: No Past Medical History Surgeries: Yes (D&C, BMT'S X 4 ; X 3) Adenoidectomy, Section, Ear Surgery, Tonsillectomy, Tubal Ligation Respiratory: No Cardiac: No Neurological: No : No Reproductive Disorders: No Female Reproductive Disorders: Denies Sexually Transmitted Disease: Yes (TRICHOMONIASIS) HIV/AIDS: No Genitourinary: No Gastrointestinal: Yes Gastroesophageal Reflux Musculoskeletal: No Endocrine: Yes Hyperthyroidism HEENT: No Cancer: No Psychosocial: Yes Anxiety, Suicide Attempts, Bipolar, Personality Disorder, Depression Integumentary: No Blood Disorders: Yes (ANEMIA WITH ) Adverse Reaction/Blood Tranf: No Family Medical History Diabetes mellitus 19 FATHER, Onset:50's - 60 Kidney disease 19 MOTHER, Onset:30's - 40 Seizure disorder G8 BROTHER, Onset:20's - 25 (MVA) No Family History of: AIDS Abdominal aortic aneurysm [place]'s disease Alcoholism Alzheimer's disease Aphasia Arthritis Asthma Cancer of mouth Cardiovascular disease Cataracts Colon cancer Completed stroke Congenital disease Congenital heart disease Coronary thrombosis Cystic fibrosis Deafness or hearing loss Dementia Drug abuse Dysphasia Fibrocystic disease of breast Gastroenteritis Glaucoma Headache disorder Hypercholesterolemia Hypertension Infertility Myocardial infarction Neoplasm Not obtainable due to adoption Osteoporosis Parkinson's disease Prostate cancer Psychosocial problem Respiratory disorder Severe allergy Thyroid disease Tuberculosis Visual disorder Physical Exam Vital Signs Vital Signs - First Documented 06/02/19 22:32 Temp 37.8 Pulse 75 Resp 16 B/P (MAP) 135/98 (110) Pulse Ox 97 O2 Delivery Room Air Capillary Refill : Less Than 3 Seconds Height, Weight, BMI Height: 5'3" Weight: 300lbs. 8.0oz. [id number]; 54.00 BMI Method:Stated General Appearance: WD/WN, Mild Distress HEENT: PERRL/EOMI, Normal ENT Inspection Neck: Normal Inspection, Other (paraspinous muscles very tense and tender on the right. Tenderness extends into the trapezius muscle of the right and down to the area medial to the scapula) Respiratory: Lungs Clear, Normal Breath Sounds, No Accessory Muscle Use Cardiovascular: Regular Rate, Rhythm, No Edema, No Murmur, Normal Peripheral Pulses Extremity: Normal Inspection, No Pedal Edema Neurologic/Psychiatric: Alert, Oriented x3, No Motor/Sensory Deficits, Normal Mood/Affect, aquatic director II-XII Norm as Tested Skin: Normal Color, Warm/Dry Progress/Results/Core Measures Suspected Sepsis Recent Fever Within 48 Hours: No Infection Criteria Present: None New/Unexplained Altered Menta: No Sepsis Screen: No Definite Risk SIRS Temperature: Pulse: 74 Respiratory Rate: 16 Blood Pressure 124 /89 Mean: 110 Results/Orders My Orders Orders - RADHA DICKENS MD Ketorolac Injection (Toradol Injection) (06/02/19 22:42) Ondansetron Oral Dissolve Tab (Zofran (06/02/19 22:42) Orphenadrine Injection (Norflex Injectio (06/02/19 22:42) Medications Given in ED Current Medications Medications Dose Ordered Sig/Chandu Route Start Time Stop Time Status Last Admin Dose Admin Ketorolac Tromethamine 30 mg STK-MED ONCE .ROUTE 06/02/19 22:42 06/03/19 01:04 DC 06/02/19 22:50 30 MG Ondansetron HCl 4 mg STK-MED ONCE .ROUTE 06/02/19 22:42 06/03/19 01:04 DC 06/02/19 22:50 4 MG Orphenadrine Citrate 60 mg STK-MED ONCE .ROUTE 06/02/19 22:42 06/03/19 01:04 DC 06/02/19 22:50 60 MG Vital Signs/I&O 06/02/19 06/03/19 22:32 00:05 Temp 37.8 37.6 Pulse 75 74 Resp 16 16 B/P (MAP) 135/98 (110) 124/89 (110) Pulse Ox 97 98 O2 Delivery Room Air Room Air Capillary Refill : Less Than 3 Seconds Blood Pressure Mean: 110 Progress Note : Progress Note Patient received sublingual Zofran and IM Toradol and Norflex. She had significant improvement with these treatments. Departure Impression Primary Impression: Muscle spasms of neck Additional Impression: Nausea & vomiting Qualified Codes: R11.2 - Nausea with vomiting, unspecified Disposition: HOME, SELF-CARE Condition: Improved Departure-Patient Inst. Decision time for Depature: 00:00 Referrals: CHAVEZ BIGGS DO (Family) Primary Care Physician [facility] (PCP) Primary Care Physician RADHA DICKENS MD Jun 03, 2019 04:37
== END 2019-06-03 00:05 | disposition home or self-care (01) ==
LOC: EDUNIT# 22:11 → ER 22:13
DX: M62.838 Other muscle spasm (principal); R11.2 Nausea with vomiting, unspecified; Z88.5 Allergy status to narcotic agent; Z88.2 Allergy status to sulfonamides; Z88.8 Allergy status to other drugs, medicaments and biological substances; Z87.891 Personal history of nicotine dependence; Z86.2 Personal history of diseases of the blood and blood-forming organs and certain disorders involving the immune mechanism
CPT/HCPCS: 96374; 96375; 99284

== ENCOUNTER 2019-10-16 17:33 | Emergency (ER) | payer SELFPAY ==
[~2019-10-16] VITALS: Ht 160 cm; Wt 137.4 kg
[2019-10-16 17:40] VITALS: BP 133/106
[2019-10-16] MEDS ORDERED: RX-ALBUTEROL INHALER (VENTOLIN HFA) 18 GM IH STA (17:56)
--- NOTE | 2019-10-16 17:56 | ED Cough/URI ---
General Chief Complaint: Cough/Cold/Flu Symptoms Stated Complaint: SOB/COUGH Source: patient Exam Limitations: no limitations History of Present Illness Date Seen by Provider: Oct 16, 2019 Time Seen by Provider: 17:54 Initial Comments To ER with all shortness of breath and cough. This began on (today is Friday). Cough is productive. She has a sore throat, earache, chest congestion. Timing/Duration: constant Severity/Quality: moderate Associated Symptoms: cough, muscle aches, shortness of breath, sore throat Allergies and Home Medications Allergies Coded Allergies: codeine (Unverified Allergy, Mild, 08/24/08) Sulfa (Sulfonamide Antibiotics) (Unverified Adverse Reaction, Unknown, 07/03/15) quetiapine (Unverified Adverse Reaction, Unknown, 07/03/15) Home Medications Albuterol Sulfate 8.5 Gm Hfa.aer.ad, 1-2 PUFF IH Q4H PRN for SHORTNESS OF BREATH, (Reported) Amoxicillin/Potassium Clav 1 Each Tablet, 1 EACH PO BID Prescribed by: MARGARET MCKEE on 10/16/19 1800 Docusate Sodium 100 Mg Capsule, 100 MG PO BID Prescribed by: SPENCER BRIGHT on 01/24/16 0820 Ferrous Sulfate 325 Mg Tablet, 325 MG PO BID Prescribed by: SPENCER BRIGHT on 01/24/16 0820 Hydrocodone Bit/Acetaminophen 1 Each Tablet, 1-2 TAB PO Q4H PRN for PAIN Prescribed by: SPENCER BRIGHT on 01/24/16 0820 Hydrocodone/Acetaminophen 1 Each Tablet, 1 EACH PO Q4H Prescribed by: SPENCER BRIGHT on 01/24/16 0822 Ibuprofen 600 Mg Tablet, 600 MG PO Q6H Prescribed by: SPENCER BRIGHT on 01/24/16 0820 Nystatin 1 Each Powder.ea., 1 EACH MC BID Prescribed by: LYNSEY WRIGHT on 10/08/17 0143 Patient Home Medication List Home Medication List Reviewed: Yes Review of Systems Review of Systems Constitutional: see HPI, chills EENTM: see HPI, nose congestion Respiratory: see HPI, cough, short of breath Cardiovascular: no symptoms reported Genitourinary: no symptoms reported Musculoskeletal: no symptoms reported Skin: no symptoms reported Psychiatric/Neurological: No Symptoms Reported Hematologic/Lymphatic: No Symptoms Reported Immunological/Allergic: no symptoms reported Past Dtfhedt-Rdgvlj-Cnfxkk Hx Patient Social History Alcohol Use: Occasionally Uses Recreational Drug Use: Yes (LAST SMOKED POT JUST PRIOR TO PG) Drug of Choice: hx cannibus Smoking Status: Former Smoker Former Smoker, Quit: May 04, 2019 Recent Hopitalizations: No Immunizations Up To Date Tetanus Booster (TDap): Less than 5yrs PED Vaccines UTD: Yes Date of Influenza Vaccine: Jun 19, 2015 Seasonal Allergies Seasonal Allergies: No Past Medical History Surgeries: Yes (D&C, BMT'S X 4 ; X 3) Adenoidectomy, Section, Ear Surgery, Tonsillectomy, Tubal Ligation Respiratory: No Cardiac: No Neurological: No Reproductive Disorders: No Female Reproductive Disorders: Denies Sexually Transmitted Disease: Yes (TRICHOMONIASIS) HIV/AIDS: No Genitourinary: No Gastrointestinal: Yes Gastroesophageal Reflux Musculoskeletal: No Endocrine: Yes Hyperthyroidism HEENT: No Cancer: No Psychosocial: Yes Anxiety, Suicide Attempts, Bipolar, Personality Disorder, Depression Integumentary: No Blood Disorders: Yes (ANEMIA WITH ) Adverse Reaction/Blood Tranf: No Family Medical History Diabetes mellitus 19 FATHER, Onset:50's - 60 Kidney disease 19 MOTHER, Onset:30's - 40 Seizure disorder G8 BROTHER, Onset:20's - 25 (MVA) No Family History of: AIDS Abdominal aortic aneurysm [place]'s disease Alcoholism Alzheimer's disease Aphasia Arthritis Asthma Cancer of mouth Cardiovascular disease Cataracts Colon cancer Completed stroke Congenital disease Congenital heart disease Coronary thrombosis Cystic fibrosis Deafness or hearing loss Dementia Drug abuse Dysphasia Fibrocystic disease of breast Gastroenteritis Glaucoma Headache disorder Hypercholesterolemia Hypertension Infertility Myocardial infarction Neoplasm Not obtainable due to adoption Osteoporosis Parkinson's disease Prostate cancer Psychosocial problem Respiratory disorder Severe allergy Thyroid disease Tuberculosis Visual disorder Physical Exam Vital Signs - First Documented 10/16/19 17:40 Temp 37.1 Pulse 102 Resp 20 B/P (MAP) 133/106 (115) Pulse Ox 97 O2 Delivery Room Air Capillary Refill : Height: 5'3" Weight: 300lbs. 8.0oz. 136.211771wy; 54.00 BMI Method:Stated General Appearance: WD/WN, no apparent distress, other (no distress, oxygen saturation 98% room air. Afebrile.) Eyes: Bilateral Eye Normal Inspection, Bilateral Eye PERRL, Bilateral Eye EOMI HEENT: PERRL/EOMI, normal ENT inspection, TM abnormal (R) (erythematous bulging), TM abnormal (L) (erythematous bulging) Neck: non-tender, full range of motion Respiratory: normal breath sounds, no respiratory distress, no accessory muscle use; No wheezing Cardiovascular: regular rate, rhythm, no murmur Gastrointestinal: normal bowel sounds, non tender, soft Neurologic/Psychiatric: alert, normal mood/affect, oriented x 3 Skin: normal color, warm/dry Progress/Results/Core Measures Suspected Sepsis SIRS Temperature: Pulse: Respiratory Rate: Laboratory Tests 10/16/19 17:47: White Blood Count 13.4H Blood Pressure / Mean: Laboratory Tests 10/16/19 17:47: Platelet Count 303 Results/Orders Lab Results Laboratory Tests Test 10/16/19 17:47 Range/Units White Blood Count 13.4 H 4.3-11.0 10^3/uL Red Blood Count 5.22 4.35-5.85 10^6/uL Hemoglobin 14.4 11.5-16.0 G/DL Hematocrit 44 35-52 % Mean Corpuscular Volume 85 80-99 FL Mean Corpuscular Hemoglobin 28 25-34 PG Mean Corpuscular Hemoglobin Concent 33 32-36 G/DL Red Cell Distribution Width 14.9 H 10.0-14.5 % Platelet Count 303 130-400 10^3/uL Mean Platelet Volume 11.1 H 7.4-10.4 FL Neutrophils (%) (Auto) 70 42-75 % Lymphocytes (%) (Auto) 19 12-44 % Monocytes (%) (Auto) 8 0-12 % Eosinophils (%) (Auto) 2 0-10 % Basophils (%) (Auto) 0 0-10 % Neutrophils # (Auto) 9.4 H 1.8-7.8 X 10^3 Lymphocytes # (Auto) 2.6 1.0-4.0 X 10^3 Monocytes # (Auto) 1.1 H 0.0-1.0 X 10^3 Eosinophils # (Auto) 0.3 0.0-0.3 10^3/uL Basophils # (Auto) 0.0 0.0-0.1 10^3/uL C-Reactive Protein High Sensitivity 4.52 H 0.00-0.50 MG/DL My Orders Orders - MCKEE,PETER J HOT METAL MIXER OPERATOR HELPER Hs C Reactive Protein (10/16/19 17:52) Chest 1 View, Ap/Pa Only (10/16/19 17:52) Cbc With Automated Diff (10/16/19 17:52) Dexamethasone Injection (Decadron Inject (10/16/19 18:00) Rx-Albuterol Inhaler (Rx-Ventolin Hfa) (10/16/19 17:56) Amoxicillin/Clavulanate Tablet (Augmenti (10/16/19 18:00) Coronavirus Sars-Cov-2 So 2018 (10/16/19 18:01) Medications Given in ED Current Medications Medications Dose Ordered Sig/Chandu Route Start Time Stop Time Status Last Admin Dose Admin Dexamethasone Sodium Phosphate 10 mg ONCE ONCE IM 10/16/19 18:00 10/16/19 18:01 DC 10/16/19 18:13 10 MG Vital Signs/I&O 10/16/19 17:40 Temp 37.1 Pulse 102 Resp 20 B/P (MAP) 133/106 (115) Pulse Ox 97 O2 Delivery Room Air Capillary Refill : Departure Impression Primary Impression: Otitis media Qualified Codes: H66.003 - Acute suppurative otitis media without spontaneous rupture of ear drum, bilateral Additional Impression: Bronchitis Disposition: HOME, SELF-CARE Condition: Stable Departure-Patient Inst. Decision time for Depature: 17:58 Referrals: [facility] (PCP) Primary Care Physician CHAVEZ BIGGS DO (Family) Primary Care Physician Patient Instructions: Acute Bronchitis, Ear Infections (Otitis Media) in Children Add. Discharge Instructions: . Go home and quarantine away from family and friends until Covid 19 swab is resulted in 24-48 hours. Antibiotic as directed. Return to ER for any worsening. All discharge instructions reviewed with patient and/or family. Voiced understanding. Scripts Amoxicillin/Potassium Clav (Augmentin 875-125 Tablet) 1 Each Tablet 1 EACH PO BID, #14 TAB Prov: MARGARET MCKEE APRN 10/16/19 MARGARET MCKEE APRN Oct 16, 2019 17:56
[2019-10-16] MEDS ORDERED: AUGMENTIN 875 MG TAB (AMOXICILLIN/CLAVULANATE) PO SCH (18:00)
[2019-10-16] MEDS ORDERED: AMOX-358 PO (18:00)
[2019-10-16] MEDS ORDERED: DEXAMETHASONE 10 MG/ML (DECADRON) 1 ML VIAL IM ONE (18:00)
[2019-10-16 18:14] LABS: BASOPHILS % (AUTO) 0 % (0-10); EOSINOPHILS # (AUTO) 0.3 10^3/uL (0.0-0.3); EOSINOPHILS % (AUTO) 2 % (0-10); HEMATOCRIT 44 % (35-52); HEMOGLOBIN 14.4 G/DL (11.5-16.0); LYMPHOCYTES # (AUTO) 2.6 X 10^3 (1.0-4.0); LYMPHOCYTES % (AUTO) 19 % (12-44); MEAN CORPUSCULAR HEMOGLOBIN 28 PG (25-34); MEAN CORPUSCULAR HGB CONC 33 G/DL (32-36); MEAN CORPUSCULAR VOLUME 85 FL (80-99); MEAN PLATELET VOLUME 11.1 FL (7.4-10.4); MONOCYTES # (AUTO) 1.1 X 10^3 (0.0-1.0); MONOCYTES % (AUTO) 8 % (0-12); NEUTROPHILS # (AUTO) 9.4 X 10^3 (1.8-7.8); NEUTROPHILS % (AUTO) 70 % (42-75); PLATELET COUNT 303 10^3/uL (130-400); RED CELL DISTRIBUTION WIDTH 14.9 % (10.0-14.5); WHITE BLOOD COUNT 13.4 10^3/uL (4.3-11.0)
--- NOTE | 2019-10-16 18:24 | Diagnostic Imaging Report ---
INDICATION: Sore throat and cough. EXAMINATION: No prior examination available for comparison. FINDINGS: The heart size, mediastinal configuration, and pulmonary vascularity are within normal limits. There is no pleural effusion, pneumothorax, or pneumonia. The osseous structures are unremarkable. IMPRESSION: No acute cardiopulmonary abnormality. Dictated by: Dictated on workstation # [id number]
== END 2019-10-16 18:32 | disposition home or self-care (01) ==
LOC: EDUNIT# 17:33 → ER 17:35
DX: H66.93 Otitis media, unspecified, bilateral (principal); K21.9 Gastro-esophageal reflux disease without esophagitis; E05.90 Thyrotoxicosis, unspecified without thyrotoxic crisis or storm; F41.9 Anxiety disorder, unspecified; F31.9 Bipolar disorder, unspecified; F60.9 Personality disorder, unspecified; Z20.828 Contact with and (suspected) exposure to other viral communicable diseases; Z87.891 Personal history of nicotine dependence
CPT/HCPCS: 71045; 85025; 86141; 99283; U0002; 36415; 87635

== ENCOUNTER 2020-01-28 16:21 | Emergency (ER) | payer SELFPAY ==
[~2020-01-28] VITALS: Ht 160 cm; Wt 128.4 kg
[~2020-01-28 16:21] MED LIST changes: +AMOX-358 PO
--- NOTE | 2020-01-28 16:36 | ED General ---
General Stated Complaint: CHEST PAIN/CONFUSION/DIZZINESS/BACK PAIN Source of Information: Patient Exam Limitations: No Limitations History of Present Illness Date Seen by Provider: Jan 28, 2020 Time Seen by Provider: 16:35 Initial Comments To ER with achy right-sided chest pain that began last night at about 6 PM and has persisted into today. Denies cough or shortness of breath or fevers. She does have a history of anxiety but states this feels a little different. Timing/Duration: 1-2 Days Severity: Moderate Associated Systoms: Denies Symptoms Allergies and Home Medications Allergies Coded Allergies: codeine (Unverified Allergy, Mild, 08/24/08) Sulfa (Sulfonamide Antibiotics) (Unverified Adverse Reaction, Unknown, 07/03/15) quetiapine (Unverified Adverse Reaction, Unknown, 07/03/15) Home Medications Albuterol Sulfate 8.5 Gm Hfa.aer.ad, 1-2 PUFF IH Q4H PRN for SHORTNESS OF BREATH, (Reported) Amoxicillin/Potassium Clav 1 Each Tablet, 1 EACH PO BID Prescribed by: MARGARET MCKEE on 10/16/19 1800 Docusate Sodium 100 Mg Capsule, 100 MG PO BID Prescribed by: SPENCER BRIGHT on 01/24/16 0820 Ferrous Sulfate 325 Mg Tablet, 325 MG PO BID Prescribed by: SPENCER BRIGHT on 01/24/16 08 Hydrocodone Bit/Acetaminophen 1 Each Tablet, 1-2 TAB PO Q4H PRN for PAIN Prescribed by: SPENCER BRIGHT on 01/24/16 0820 Hydrocodone/Acetaminophen 1 Each Tablet, 1 EACH PO Q4H Prescribed by: SPENCER BRIGHT on 01/24/16 0822 Ibuprofen 600 Mg Tablet, 600 MG PO Q6H Prescribed by: SPENCER BRIGHT on 01/24/16 0820 Nystatin 1 Each Powder.ea., 1 EACH MC BID Prescribed by: LYNSEY WRIGHT on 10/08/17 0143 Patient Home Medication List Home Medication List Reviewed: Yes Review of Systems Review of Systems Constitutional: see HPI EENTM: see HPI Respiratory: no symptoms reported Cardiovascular: see HPI, chest pain Genitourinary: no symptoms reported Musculoskeletal: no symptoms reported Skin: no symptoms reported Psychiatric/Neurological: No Symptoms Reported Hematologic/Lymphatic: No Symptoms Reported Immunological/Allergic: no symptoms reported Past Sfxnycw-Ipbgda-Fctubi Hx Patient Social History Drug of Choice: hx cannibus Former Smoker, Quit: May 04, 2019 Recent Foreign Travel: No Contact w/Someone Who Travel: No Recent Hopitalizations: No Immunizations Up To Date Tetanus Booster (TDap): Less than 5yrs PED Vaccines UTD: Yes Date of Influenza Vaccine: Jun 19, 2015 Seasonal Allergies Seasonal Allergies: No Past Medical History Surgeries: Yes (D&C, BMT'S X 4 ; X 3) Adenoidectomy, Section, Ear Surgery, Tonsillectomy, Tubal Ligation Respiratory: No Cardiac: No Neurological: No Reproductive Disorders: No Female Reproductive Disorders: Denies Sexually Transmitted Disease: Yes (TRICHOMONIASIS) HIV/AIDS: No Genitourinary: No Gastrointestinal: Yes Gastroesophageal Reflux Musculoskeletal: No Endocrine: Yes Hyperthyroidism HEENT: No Cancer: No Psychosocial: Yes Anxiety, Suicide Attempts, Bipolar, Personality Disorder, Depression Integumentary: No Blood Disorders: Yes (ANEMIA WITH ) Adverse Reaction/Blood Tranf: No Family Medical History Diabetes mellitus 19 FATHER, Onset:50's - 60 Kidney disease 19 MOTHER, Onset:30's - 40 Seizure disorder G8 BROTHER, Onset:20's - 25 (MVA) No Family History of: AIDS Abdominal aortic aneurysm [place]'s disease Alcoholism Alzheimer's disease Aphasia Arthritis Asthma Cancer of mouth Cardiovascular disease Cataracts Colon cancer Completed stroke Congenital disease Congenital heart disease Coronary thrombosis Cystic fibrosis Deafness or hearing loss Dementia Drug abuse Dysphasia Fibrocystic disease of breast Gastroenteritis Glaucoma Headache disorder Hypercholesterolemia Hypertension Infertility Myocardial infarction Neoplasm Not obtainable due to adoption Osteoporosis Parkinson's disease Prostate cancer Psychosocial problem Respiratory disorder Severe allergy Thyroid disease Tuberculosis Visual disorder Physical Exam Vital Signs Vital Signs - First Documented 01/28/20 16:30 Temp 36.0 Pulse 77 Resp 20 B/P (MAP) 127/91 (103) Pulse Ox 98 O2 Delivery Room Air Capillary Refill : Height, Weight, BMI Height: 5'3" Weight: 300lbs. 8.0oz. 136.141050nr; 53.00 BMI Method:Stated General Appearance: No Apparent Distress, WD/WN, Obese, Other (tachypnea, anxious appearing.Pleasant though) Eyes: Bilateral Eye Normal Inspection, Bilateral Eye PERRL Neck: Full Range of Motion, Normal Inspection Respiratory: No Accessory Muscle Use, No Respiratory Distress Cardiovascular: Regular Rate, Rhythm, Normal Peripheral Pulses Gastrointestinal: Normal Bowel Sounds, Non Tender, Soft Extremity: Normal Capillary Refill, Normal Inspection Neurologic/Psychiatric: Alert, Oriented x3, No Motor/Sensory Deficits Skin: Normal Color, Warm/Dry Progress/Results/Core Measures Suspected Sepsis SIRS Temperature: Pulse: Respiratory Rate: Laboratory Tests 01/28/20 16:35: White Blood Count 9.9 Blood Pressure / Mean: Laboratory Tests 01/28/20 16:35: Creatinine 0.80, INR Comment 0.9, Platelet Count 310, Total Bilirubin 0.5 Results/Orders Lab Results Laboratory Tests Test 01/28/20 16:35 Range/Units White Blood Count 9.9 4.3-11.0 10^3/uL Red Blood Count 4.88 3.80-5.11 10^6/uL Hemoglobin 13.6 11.5-16.0 g/dL Hematocrit 42 35-52 % Mean Corpuscular Volume 86 80-99 fL Mean Corpuscular Hemoglobin 28 25-34 pg Mean Corpuscular Hemoglobin Concent 32 32-36 g/dL Red Cell Distribution Width 14.7 H 10.0-14.5 % Platelet Count 310 130-400 10^3/uL Mean Platelet Volume 10.7 9.0-12.2 fL Immature Granulocyte % (Auto) 0 % Neutrophils (%) (Auto) 58 42-75 % Lymphocytes (%) (Auto) 32 12-44 % Monocytes (%) (Auto) 8 0-12 % Eosinophils (%) (Auto) 2 0-10 % Basophils (%) (Auto) 0 0-10 % Neutrophils # (Auto) 5.7 1.8-7.8 10^3/uL Lymphocytes # (Auto) 3.2 1.0-4.0 10^3/uL Monocytes # (Auto) 0.8 0.0-1.0 10^3/uL Eosinophils # (Auto) 0.2 0.0-0.3 10^3/uL Basophils # (Auto) 0.0 0.0-0.1 10^3/uL Immature Granulocyte # (Auto) 0.0 0.0-0.1 10^3/uL Prothrombin Time 12.6 12.2-14.7 SEC INR Comment 0.9 0.8-1.4 Activated Partial Thromboplast Time 32 24-35 SEC D-Dimer 0.30 0.00-0.49 UG/ML Sodium Level 139 135-145 MMOL/L Potassium Level 3.6 3.6-5.0 MMOL/L Chloride Level 106 98-107 MMOL/L Carbon Dioxide Level 21 21-32 MMOL/L Anion Gap 12 5-14 MMOL/L Blood Urea Nitrogen 9 7-18 MG/DL Creatinine 0.80 0.60-1.30 MG/DL Estimat Glomerular Filtration Rate > 60 BUN/Creatinine Ratio 11 Glucose Level 84 70-105 MG/DL Calcium Level 9.4 8.5-10.1 MG/DL Corrected Calcium 8.5-10.1 MG/DL Magnesium Level 1.8 1.6-2.4 MG/DL Total Bilirubin 0.5 0.1-1.0 MG/DL Aspartate Amino Transf (AST/SGOT) 16 5-34 U/L Alanine Aminotransferase (ALT/SGPT) 10 0-55 U/L Alkaline Phosphatase 80 40-136 U/L Myoglobin 34.4 10.0-92.0 NG/ML Troponin I < 0.028 <0.028 NG/ML B-Type Natriuretic Peptide 45.2 <100.0 PG/ML Total Protein 8.2 6.4-8.2 GM/DL Albumin 4.6 H 3.2-4.5 GM/DL My Orders Orders - MARGARET MCKEE APRN Cbc With Automated Diff (01/28/20 16:37) Magnesium (01/28/20 16:37) Chest 1 View, Ap/Pa Only (01/28/20 16:37) Ekg Tracing (01/28/20 16:37) Comprehensive Metabolic Panel (01/28/20 16:37) Myoglobin Serum (01/28/20 16:37) Protime With Inr (01/28/20 16:37) Partial Thromboplastin Time (01/28/20 16:37) O2 (01/28/20 16:37) Monitor-Rhythm Ecg Trace Only (01/28/20 16:37) Lipid Panel (01/29/20 06:00) Ed Iv/Invasive Line Start (01/28/20 16:37) BNP (01/28/20 16:37) Troponin I (01/28/20 16:37) Ketorolac Injection (Toradol Injection) (01/28/20 16:45) Lorazepam Injection (Ativan Injection) (01/28/20 16:45) Fibrin Degradation Products (01/28/20 16:35) Medications Given in ED Current Medications Medications Dose Ordered Sig/Chandu Route Start Time Stop Time Status Last Admin Dose Admin Ketorolac Tromethamine 15 mg ONCE ONCE IVP 01/28/20 16:45 01/28/20 16:46 DC 01/28/20 16:56 15 MG Lorazepam 0.5 mg ONCE PRN IVP 01/28/20 16:45 01/28/20 16:59 0.5 MG Vital Signs/I&O 01/28/20 01/28/20 16:30 16:30 Temp 36.0 Pulse 77 Resp 20 B/P (MAP) 127/91 (103) Pulse Ox 98 O2 Delivery Room Air Room Air Capillary Refill : Departure Communication (Admissions) 1829-patient is feeling quite a bit better at this time. I discussed with her that I feel her symptoms are related to anxiety. She states "I need to see a psychiatrist to get back on my medicines". States that she was on medication for depression/anxiety and bipolar disorder. I offered to put her on some Lexapro to help with anxiety and she would like to do this. Impression Primary Impression: Anxiety Disposition: 01 HOME, SELF-CARE Condition: Stable Departure-Patient Inst. Decision time for Depature: 18:22 Referrals: [facility]/ (PCP) Primary Care Physician CHAVEZ BIGGS DO (Family) Primary Care Physician Patient Instructions: Anxiety, Adult (DC) Add. Discharge Instructions: 1. Return to ER for any concerns 2. medication as directed 3. See your doctor next week Scripts Escitalopram Oxalate (Lexapro) 10 Mg Tablet 10 MG PO DAILY, #30 TAB Prov: MARGARET MCKEE TIN WHIZ MACHINE OPERATOR 01/28/20 MARGARET MCKEE TIN WHIZ MACHINE OPERATOR Jan 28, 2020 16:36
[2020-01-28] MEDS ORDERED: KETOROLAC 30 MG/ML VIAL IVP ONE (16:45)
[2020-01-28] MEDS ORDERED: LORazepam INJ 2 MG/ML (ATIVAN) VIAL IVP PRN (16:45)
--- NOTE | 2020-01-28 16:58 | Diagnostic Imaging Report ---
Indication: Chest pain. Frontal chest obtained at 0450 p.m. Comparison is made to 10/16/2019. Heart and mediastinal silhouette are normal in appearance. The lungs are clear. There is no pneumothorax or pleural fluid. IMPRESSION: Negative chest. Dictated by: Dictated on workstation # [id number]
[2020-01-28 17:02] LABS: BASOPHILS % (AUTO) 0 % (0-10); EOSINOPHILS # (AUTO) 0.2 10^3/uL (0.0-0.3); EOSINOPHILS % (AUTO) 2 % (0-10); HEMATOCRIT 42 % (35-52); HEMOGLOBIN 13.6 g/dL (11.5-16.0); LYMPHOCYTES # (AUTO) 3.2 10^3/uL (1.0-4.0); LYMPHOCYTES % (AUTO) 32 % (12-44); MEAN CORPUSCULAR HEMOGLOBIN 28 pg (25-34); MEAN CORPUSCULAR HGB CONC 32 g/dL (32-36); MEAN CORPUSCULAR VOLUME 86 fL (80-99); MEAN PLATELET VOLUME 10.7 fL (9.0-12.2); MONOCYTES # (AUTO) 0.8 10^3/uL (0.0-1.0); MONOCYTES % (AUTO) 8 % (0-12); NEUTROPHILS # (AUTO) 5.7 10^3/uL (1.8-7.8); NEUTROPHILS % (AUTO) 58 % (42-75); PLATELET COUNT 310 10^3/uL (130-400); WHITE BLOOD COUNT 9.9 10^3/uL (4.3-11.0)
[2020-01-28 17:17] LABS: ALBUMIN 4.6 GM/DL (3.2-4.5); CHLORIDE 106 MMOL/L (98-107); POTASSIUM 3.6 MMOL/L (3.6-5.0); SODIUM 139 MMOL/L (135-145)
[2020-01-28 17:18] LABS: CALCIUM 9.4 MG/DL (8.5-10.1)
[2020-01-28 17:19] LABS: GLUCOSE 84 MG/DL (70-105); TOTAL PROTEIN 8.2 GM/DL (6.4-8.2)
[2020-01-28 17:20] LABS: CARBON DIOXIDE 21 MMOL/L (21-32)
[2020-01-28 17:21] LABS: BILIRUBIN,TOTAL 0.5 MG/DL (0.1-1.0)
[2020-01-28 17:22] LABS: ALKALINE PHOSPHATASE 80 U/L (40-136)
[2020-01-28 17:23] LABS: GFR ESTIMATED > 60
[2020-01-28 17:24] LABS: BUN/CREATININE RATIO 11
[2020-01-28 17:26] LABS: ALANINE AMINOTRANSFERASE 10 U/L (0-55); MAGNESIUM 1.8 MG/DL (1.6-2.4)
[2020-01-28 18:09] LABS: FIBRIN DEGRADATION PRODUCTS 0.3 UG/ML (0.00-0.49); INR 0.9 (0.8-1.4); PROTHROMBIN TIME PATIENT 12.6 SEC (12.2-14.7)
[2020-01-28] MEDS ORDERED: ESCI10TA PO (18:24)
[2020-01-28 18:30] VITALS: BP 127/91
== END 2020-01-28 18:30 | disposition home or self-care (01) ==
LOC: EDUNIT# 16:21 → ER 16:23
DX: F41.9 Anxiety disorder, unspecified (principal); E66.9 Obesity, unspecified; Z68.43 Body mass index [BMI] 50.0-59.9, adult; Z83.3 Family history of diabetes mellitus; Z87.891 Personal history of nicotine dependence; Z88.2 Allergy status to sulfonamides; Z88.5 Allergy status to narcotic agent; Z88.8 Allergy status to other drugs, medicaments and biological substances
CPT/HCPCS: 36415; 71045; 80053; 83735; 83874; 83880; 84484; 85025; 85379; 85610; 85730; 93005; 93041